=== PATIENT | male | born 1945 | race Caucasian/White ===

== ENCOUNTER 2019-08-09 14:06 | Inpatient (IN) ==
--- NOTE | 2019-08-09 14:59 | Diag Imaging Result Doc PS360 ---
CHEST-1 VIEW - 08/09/2019 INDICATION: sepsis protocol COMPARISON: 05/25/2019 FINDINGS: There is a grossly stable dominant pulmonary mass in the right upper lobe. No new masses or infiltrates otherwise. Heart size is normal. No pneumothorax or pleural effusion. IMPRESSION: No change from prior. Electronically signed by Semaj Bryan 08/09/2019 2:57 PM
[2019-08-09] MEDS ORDERED: NS 1,000 ML IV ONE ×2 (15:22→17:24)
[2019-08-09 15:53] LABS: INR 1.2; PROTIME 15.4 Seconds (11.0-16.0)
[2019-08-09 15:54] LABS: PTT 33.8 Seconds (22.3-41.8)
[2019-08-09 16:04] LABS: ESTIMATED GFR > 60
[2019-08-09 16:05] LABS: BASO# 0.06 X1000 (0.0-0.2); BASO% 0.1 % (0.0-0.8); HEMOGLOBIN 10.5 g/dL (14.0-18.0); IMM GRAN# 0.03 X1000 (0.0-0.04); IMM GRAN% 0.1 % (0.0-0.5); LYMPH# 44.52 X1000 (1.2-3.4); LYMPH% 99.2 % (20.5-51.1); MCH 29.4 PG (27-31); MCHC 32.8 g/dL (33-37); MCV 89.6 FL (81-99); MONO# 0.02 X1000 (0.11-0.59); MPV 8.8 FL (7.4-10.4); NEUT% 0.6 % (42.2-75.2); PLT 207 X1000 (130-400); RBC 3.57 XMIL (4.7-6.1); RDW 16.3 % (11.5-14.5); WBC 44.86 X1000 (4.8-10.8)
[2019-08-09 16:07] LABS: NEUT# 0.23 X1000 (1.4-6.5)
[2019-08-09 16:18] LABS: AGAP 13; ALB/GLOB RATIO 1.6; ALBUMIN 2.5 g/dL (3.5-5.0); ALKALINE PHOSPHATASE 118 U/L (32-122); BUN 20 mg/dL (8-22); CALCIUM 7.7 mg/dL (8.8-10.2); CHLORIDE 81 mmol/L (98-107); CK PROFILE 63 U/L (24-204); COSMO 250; CREATININE 0.6 mg/dL (0.7-1.2); GLUCOSE 99 mg/dL (70-104); GOT 64 U/L (10-34); GPT 41 U/L (10-44); POTASSIUM 4.1 mmol/L (3.5-5.1); SODIUM 123 mmol/L (136-145); TCO2 29 mmol/L (25-35); TOTAL BILIRUBIN 0.65 mg/dL (0.20-1.00); TOTAL PROTEIN 4.1 g/dL (6.3-8.3)
[2019-08-09 16:22] LABS: LARGE PLATELETS OCCASIONAL; LYMPHS 55 % (21-51)
[2019-08-09 16:23] LABS: ANISOCYTOSIS 1+
--- NOTE | 2019-08-09 16:43 | EKG Report ---
Test Performed on : 08/09/2019 2:23:37 PM Test Reason : ED. No order in [place] Blood Pressure : / mmHG Vent. Rate : 126 BPM Atrial Rate : 126 BPM P-R Int : 118 ms QRS Dur : 130 ms QT Int : 346 ms P-R-T Axes : 101 028 004 degrees QTc Int : 501 ms Sinus tachycardia. with premature supraventricular complexes. Right bundle branch block T wave abnormality, consider inferior ischemia Abnormal ECG When compared with ECG of 26-MAY-2019 10:02, premature supraventricular complexes. are now present Vent. rate has increased BY 52 BPM T wave inversion now evident in Anterior leads Unconfirmed Result
[2019-08-09 18:38] LABS: URINE SOURCE CATH
[2019-08-09 18:50] LABS: BILIRUBIN URINE NEGATIVE (NEGATIVE); BLOOD URINE NEGATIVE (NEGATIVE); COLOR YELLOW; GLUCOSE URINE NEGATIVE (NEGATIVE); KETONE URINE TRACE mg/dL (NEGATIVE); LEUKOCYTES URINE NEGATIVE (NEGATIVE); NITRITE URINE NEGATIVE (NEGATIVE); PH URINE 5.5; PROTEIN URINE NEGATIVE (NEGATIVE); SP GRAVITY URINE 1.018; TURBIDITY URINE CLEAR (CLEAR); UROBILINOGEN URINE 3 mg/dL (NORMAL)
[2019-08-09 18:52] LABS: UR EPITHELIAL CELLS <10 /HPF (<10); URINE BACTERIA NEGATIVE /HPF; URINE RBC <10 /HPF (<10); URINE WBC <10 /HPF (<10)
--- NOTE | 2019-08-09 19:29 | Diag Imaging Result Doc PS360 ---
CT ABD/PELVIS W/IV CONT ONLY - 08/09/2019 INDICATION: 1ST CHEMO LAST LIBRADO CAME W/ N/V/D/ABD PAIN + WBC 40 COMPARISON: 05/25/2019 FINDINGS: There are trace bilateral pleural effusions. No infiltrates in the lung bases. Heart size is normal. There is diffuse wall thickening of the colon compatible with severe, diffuse colitis. Otherwise, no bowel obstruction or inflammation. There has been increase in size of the hypoenhancing liver lesion at the lateral right lobe of the liver. This now measures about 2.3 cm. Stable severe mesenteric lymphadenopathy. Stable mild splenomegaly. There is significant body wall edema. IMPRESSION: 1. Severe diffuse colitis. 2. Enlargement of the ill-defined liver mass. 3. Trace pleural effusions. Body wall edema. This exam was performed using automated exposure control, adjustment of mA or kV according to patient size, and/or use of iterative reconstruction technique Electronically signed by Semaj Bryan 08/09/2019 7:27 PM
[2019-08-09] MEDS ORDERED: CIPRO 400 MG/D5W 400 MG/200 ML IVPB IV ONE (20:06)
[2019-08-09] MEDS ORDERED: FLAGYL 500 MG/NS 500 MG/100 ML IVPB IV ONE (20:06)
--- NOTE | 2019-08-09 20:08 | PROVIDER DOCUMENTATION ---
This chart was entered by Tonya Redding Scribe, acting as scribe for Kai Rodarte MD. HPI-General Adult - General Chief Complaint: SEPSIS ALERT - D Stated Complaint: CANCER PT CANT EAT/ V/D WEAK Time Seen by Provider: 08/09/19 14:38 Source: patient Allergies/Adverse Reactions: Patient Allergies Allergy/AdvReac Type Severity Reaction Status Date / Time atorvastatin [From Lipitor] Allergy RASH Verified 05/26/19 11:45 naproxen [From Naprosyn] Allergy RASH Verified 05/26/19 11:45 Home Medications: Home Medication List Medication Instructions Recorded Confirmed Last Taken Type Hydrocodone/Acetaminophen 7.5 mg PO DAILY 08/09/19 08/09/19 Unknown History [Hydrocodone-Acetamin 7.5-325] - History of Present Illness -Gen Adult Nature of Presenting Problems: 74 yom c/o nvd and dehydration after receiving 1st chemo tx this past . pt has hx of lung cancer w/mets to lymph nodes and leukemia. pt is in no acute distress but is [place]. Location of Pain/Injury: reports: none Pain Radiation: reports: no radiation Quality of Pain: reports: none Severity: reports: mild Onset/Duration: reports: 4 days ago Timing: reports: still present Context/Activities at Onset: reports: none Associated Symptoms: reports: diarrhea, nausea, vomiting, other (dehydration) Recently seen or treated by another doctor?: Yes (chemo [facility] ) Review of Systems - Adult - REVIEW OF SYSTEMS - ADULT Constitutional: reports: see HPI, other (dehydration). denies: chills, fever, fatique Eyes: reports: no symptoms reported Ears, Nose, Mouth & Throat: reports: no symptoms reported Cardiovascular: reports: no symptoms reported Respiratory: reports: no symptoms reported Gastrointestinal: reports: see HPI, diarrhea, nausea, vomiting. denies: abdominal pain, hematemesis, constipation Genitourinary: reports: no symptoms reported Musculoskeletal: reports: no symptoms reported Integumentary: reports: no symptoms reported Neurological: reports: no symptoms reported Psychiatric: reports: no symptoms reported Endocrine: reports: no symptoms reported Hematologic/Lymphatic: reports: no symptoms reported Allergic/Immunologic: reports: no symptoms reported All Other Systems: Reviewed and Negative Past History - Adult - PAST MEDICAL HISTORY-ADULT Review of Records: reports: Nursing Assessment Review, Medications Reviewed, Social history reviewed & non-contributory. Major Childhood Illnesses: reports: denies history Cardiovascular: reports: HTN Respiratory: reports: cancer Gastrointestinal: reports: denies history Obstetrical/Gynecological: reports: denies history Genitourinary: reports: prostate cancer Musculoskeletal: reports: denies history Neurological: reports: CVA Endocrine/Immune: reports: Leukemia Other Conditions: reports: denies history - IMMUNIZATION STATUS Childhood Immunizations: See Nurse Assessment Flu Vaccine: See Nurse Assessment - FAMILY HISTORY Family History: reviewed, not pertinent - SOCIAL HISTORY Smoking: cigarettes, greater than 1 pack/day Provider spent 3-5 mins advising pt. on dangers of tobacco.: Discussed manners to quit use, and f/u contacts for add'l counseling. Substance Use: alcohol Alcohol Use Frequency: every day Number of drinks per typical drinking period:: 11-15 drinks Physical Exam-General - PHYSICAL EXAM-ADULT Initial Vital Signs Reviewed: Yes - CONSTITUTIONAL General Appearance: appears well, alert, no apparent distress, thin. negative: lethargic, slow to respond, obtunded - EYES Eyes: PERRL/EOMI, pink conjunctivae - HEAD, EARS, NOSE, MOUTH & THROAT HENMT: normocephalic/atraumatic, normal ENT inspection, hearing deficit ([place]). negative: moist mucous membranes (dry mucous membranes), angioedema, pharyngeal erythema, tonsillar exudate - NECK Neck: non-tender, full range of motion, supple, normal inspection - RESPIRATORY Respiratory: chest non-tender, lungs clear, normal breath sounds, no pleuratic chest pain, no respiratory distress, no accessory muscle use. negative: respiratory distress, decreased breath sounds, wheezing - CARDIOVASCULAR Cardiovascular: normal peripheral pulses, regular rate, rhythm, no edema, no gallop, no JVD, no murmur. negative: tachycardia, extra beats, irregularly irregular, PMI displaced laterally - GASTROINTESTINAL (ABDOMEN) Abdominal Exam: normal bowel sounds, non tender, soft, no organomegaly, no pulsatile mass. 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, grossly normal, no motor/sensory deficits - PSYCHIATRIC Psych/Mental Status: normal mood/affect, normal thought content, normal thought process, oriented x 3 Progress - PLAN OF CARE/RESULTS Progress/Plan/Lab Results: Vital Signs - 8 hr 08/09/19 14:28 08/09/19 14:42 08/09/19 14:43 Temperature 97.7 F Pulse Rate 123 H 127 H Respiratory Rate 24 23 Blood Pressure 137/90 96/58 O2 Sat by Pulse Oximetry 97 97 98 08/09/19 14:45 08/09/19 15:00 08/09/19 15:15 Temperature Pulse Rate 126 H 121 H 128 H Respiratory Rate 16 27 H 18 Blood Pressure O2 Sat by Pulse Oximetry 97 98 96 08/09/19 15:30 08/09/19 15:45 08/09/19 15:53 Temperature Pulse Rate 120 H 126 H 118 H Respiratory Rate 16 25 H 21 Blood Pressure 96/56 O2 Sat by Pulse Oximetry 97 97 96 08/09/19 16:00 08/09/19 16:01 08/09/19 16:15 Temperature Pulse Rate 122 H 119 H 124 H Respiratory Rate 20 24 18 Blood Pressure 99/64 O2 Sat by Pulse Oximetry 95 96 97 08/09/19 16:30 08/09/19 16:31 08/09/19 17:01 Temperature Pulse Rate 117 H 120 H 122 H Respiratory Rate 19 19 19 Blood Pressure 93/55 119/64 O2 Sat by Pulse Oximetry 97 96 96 08/09/19 17:31 08/09/19 18:01 08/09/19 18:31 Temperature Pulse Rate 118 H 122 H 124 H Respiratory Rate 17 19 20 Blood Pressure 116/59 128/55 94/64 O2 Sat by Pulse Oximetry 95 95 95 08/09/19 15:29 Influenza Screen - Final Nasopharyngeal Laboratory Results - last 24 hr 08/09/19 08/09/19 08/09/19 15:13 15:13 15:13 WBC 44.86 H RBC 3.57 L Hgb 10.5 L Hct 32.0 L MCV 89.6 MCH 29.4 MCHC 32.8 L RDW Std Deviation 16.3 H Plt Count 207 MPV 8.8 Immature Gran % (Auto) 0.1 Neut % (Auto) 0.6 L Lymph % (Auto) 99.2 H [place] % (Auto) 0.0 L Eos % (Auto) 0.0 Baso % (Auto) 0.1 Immature Gran # (Auto) 0.03 Neut # (Auto) 0.23 L* Lymph # (Auto) 44.52 H [place] # (Auto) 0.02 L Eos # (Auto) 0.00 Baso # (Auto) 0.06 Segmented Neutrophils Not Reportable Lymphocytes 55 H Atypical Lymphocytes 33.0 Large Platelets OCCASIONAL Anisocytosis 1+ Unidentified Cells 12.0 PT 15.4 INR 1.20 PTT (Actin FS) 33.8 Sodium 123 L Potassium 4.1 Chloride 81 L Carbon Dioxide 29 Anion Gap 13 BUN 20 Creatinine 0.6 L Estimated GFR/1.73 m2 > 60 BUN/Creatinine Ratio 33 Glucose 99 Calculated Osmolality 250 Calcium 7.7 L Total Bilirubin 0.65 AST 64 H ALT 41 Alkaline Phosphatase 118 Creatine Kinase 63 Troponin T Total Protein 4.1 L Albumin 2.5 L Globulin 1.6 Albumin/Globulin Ratio 1.6 Plasma Lactate Urine Source Urine Color Urine Turbidity Urine pH Ur Specific [place] Urine Protein Ur Glucose (Stick) Ur Ketones (Stick) Urine Blood Urine Nitrite Urine Bilirubin Urobilinogen Dipstick Urine Leukocytes Urine WBC (Auto) Urine RBC (Auto) U Epithel Cells (Auto) Urine Bacteria (Auto) 08/09/19 08/09/19 08/09/19 15:13 15:13 17:45 WBC RBC Hgb Hct MCV MCH MCHC RDW Std Deviation Plt Count MPV Immature Gran % (Auto) Neut % (Auto) Lymph % (Auto) [place] % (Auto) Eos % (Auto) Baso % (Auto) Immature Gran # (Auto) Neut # (Auto) Lymph # (Auto) [place] # (Auto) Eos # (Auto) Baso # (Auto) Segmented Neutrophils Lymphocytes Atypical Lymphocytes Large Platelets Anisocytosis Unidentified Cells PT INR PTT (Actin FS) Sodium Potassium Chloride Carbon Dioxide Anion Gap BUN Creatinine Estimated GFR/1.73 m2 BUN/Creatinine Ratio Glucose Calculated Osmolality Calcium Total Bilirubin AST ALT Alkaline Phosphatase Creatine Kinase Troponin T < 0.010 Total Protein Albumin Globulin Albumin/Globulin Ratio Plasma Lactate 1.7 0.7 Urine Source Urine Color Urine Turbidity Urine pH Ur Specific [place] Urine Protein Ur Glucose (Stick) Ur Ketones (Stick) Urine Blood Urine Nitrite Urine Bilirubin Urobilinogen Dipstick Urine Leukocytes Urine WBC (Auto) Urine RBC (Auto) U Epithel Cells (Auto) Urine Bacteria (Auto) 08/09/19 18:33 WBC RBC Hgb Hct MCV MCH MCHC RDW Std Deviation Plt Count MPV Immature Gran % (Auto) Neut % (Auto) Lymph % (Auto) [place] % (Auto) Eos % (Auto) Baso % (Auto) Immature Gran # (Auto) Neut # (Auto) Lymph # (Auto) [place] # (Auto) Eos # (Auto) Baso # (Auto) Segmented Neutrophils Lymphocytes Atypical Lymphocytes Large Platelets Anisocytosis Unidentified Cells PT INR PTT (Actin FS) Sodium Potassium Chloride Carbon Dioxide Anion Gap BUN Creatinine Estimated GFR/1.73 m2 BUN/Creatinine Ratio Glucose Calculated Osmolality Calcium Total Bilirubin AST ALT Alkaline Phosphatase Creatine Kinase Troponin T Total Protein Albumin Globulin Albumin/Globulin Ratio Plasma Lactate Urine Source CATH Urine Color YELLOW Urine Turbidity CLEAR Urine pH 5.5 Ur Specific [place] 1.018 Urine Protein NEGATIVE Ur Glucose (Stick) NEGATIVE Ur Ketones (Stick) TRACE A Urine Blood NEGATIVE Urine Nitrite NEGATIVE Urine Bilirubin NEGATIVE Urobilinogen Dipstick 3 A Urine Leukocytes NEGATIVE Urine WBC (Auto) <10 Urine RBC (Auto) <10 U Epithel Cells (Auto) <10 Urine Bacteria (Auto) NEGATIVE Orders Category Date Time Status Cardiac Monitoring DIRECTED Care 08/09/19 14:32 Active IV Insertion ORDERED Care 08/09/19 14:32 Completed Notify MD of + Sepsis Screen NOW Care 08/09/19 14:32 Active Notify Physician As Ordered Care 08/09/19 14:32 Active CHEST-1 VIEW [RAD] Stat Exams 08/09/19 14:[address] ABD/PELVIS W/IV CONT ONLY [CT] Stat Exams 08/09/19 17:25 Ordered BLOOD CULTURE [BLDCUL] Stat Lab 08/09/19 15:20 Results CBC WITH DIFF [HEME] Stat Lab 08/09/19 15:13 Completed CK PROFILE [SP CHEM] Stat Lab 08/09/19 15:13 Completed COMPREHENSIVE METABOLIC PANEL [CHEM] Stat Lab 08/09/19 15:13 Completed INFLUENZA SCREEN A/B Stat Lab 08/09/19 15:29 Completed LACTATE, PLASMA [CHEM] Lab 08/09/19 17:45 Completed LACTATE, PLASMA [CHEM] Lab 08/09/19 20:45 Uncollected LACTATE, PLASMA [CHEM] Q3H Lab 08/09/19 15:13 Completed PROTIME WITH INR [COAG] Stat Lab 08/09/19 15:13 Completed PTT [COAG] Stat Lab 08/09/19 15:13 Completed TROPONIN T Stat Lab 08/09/19 15:13 Completed URINALYSIS W/POSS RFLX CULT [URINALYSIS] Stat Lab 08/09/19 18:33 Completed 0.9% Sodium Chloride Inj [Ns] 1,000 ml Med 08/09/19 15:22 Discontinued IV 999 mls/hr 0.9% Sodium Chloride Inj [Ns] 1,000 ml Med 08/09/19 17:24 Discontinued IV 999 mls/hr Oxygen Device Stat Oth 08/09/19 14:32 Completed EKG [EKG] Stat Ther 08/09/19 14:23 Draft Result Diagrams: 08/09/19 15:13 08/09/19 15:13 - REASSESSMENT Reassessment #1 Time Reassessed: 20:07 Status: other (SPOKE TO HOSPITALIST; WILL ADMIT.) - XRAY 1 XRAY Study: Chest ([facility] - [address] [place] [address], [address], [place] [address] [facility] - [address] [place] [address] Department of Imaging Patient: JACQUELYN WEIADM Date: 08/09/19MR#: [id number] : 7ADM Status: PRE ERAcct#: [id number] Age/Sex: 74/MRoom/Bed: Loc: ED Ordering Physician: Tho De Paz MD Family Physician: Xiang Cortés MD Reason for Procedure: sepsis protocol Signed CHEST-1 VIEW - 08/09/2019 INDICATION: sepsis protocol COMPARISON: 05/25/2019 FINDINGS: There is a grossly stable dominant pulmonary mass in the right upper lobe. No new masses or infiltrates otherwise. Heart size is normal. No pneumothorax or pleural effusion. IMPRESSION: No change from prior. Electronically signed by Semaj Bryan 08/09/2019 2:57 PM 08/09/197 Interpreting Physician: Semaj Bryan MD Dictated Date/Time: 08/09/19 1456 cc: Tho De Paz MD; Xiang Cortés MD) - CT/MRI 1 CT Study: Abdomen ([facility] - [address], [address], [place] [address] [facility] - [address] [place] [address] Department of Imaging Patient: JACQUELYN WEI Date: 08/09/19MR#: [id number] : 7ADM [id number] Age/Sex: 74/MRoom/Bed: Loc: ED Ordering Physician: Kai Rodarte MD Family Physician: Xiang Cortés MD Reason for Procedure: 1ST CHEMO LAST LIBRADO CAME W/ N/V/D/ABD PAIN + WBC [address] ABD/PELVIS W/IV CONT ONLY - 08/09/2019 INDICATION: 1ST CHEMO LAST LIBRADO CAME W/ N/V/D/ABD PAIN + WBC 40 COMPARISON: 05/25/2019 FINDINGS: There are trace bilateral pleural effusions. No infiltrates in the lung bases. Heart size is normal. There is diffuse wall thickening of the colon compatible with severe, diffuse colitis. Otherwise, no bowel obstruction or inflammation. There has been increase in size of the hypoenhancing liver lesion at the lateral right lobe of the liver. This now measures about 2.3 cm. Stable severe mesenteric lymphadenopathy. Stable mild splenomegaly. There is significant body wall edema. IMPRESSION: 1. Severe diffuse colitis. 2. Enlargement of the ill-defined liver mass. 3. Trace pleural effusions. Body wall edema. This exam was performed using automated exposure control, adjustment of mA or kV according to patient size, and/or use of iterative reconstruction technique Electronically signed by Semaj Bryan 08/09/2019 7:27 PM 08/09/191926 Interpreting Physician: Semaj Bryan MD Dictated Date/Time: 08/09/191920 cc: Kai Rodarte MD; Xiang Cortés MD) Departure - Departure Date of Disposition Decision: 08/09/19 Time of Disposition Decision: 20:06 DIAGNOSIS: Colitis Disposition: ADMITTED INPATIENT 09 Certified Medical Emergency: Emergent Condition: Serious Referrals and Follow-Ups: Xiang Cortés MD [Primary Care Provider] - - Critical Care Note This patient required my direct & personal management of CC.: No Attestation - Physician/ EMILY Attestation Patient care was provided by Advanced Practice Provider:: No The physician spent face to face time with patient:: Yes Advanced Practice Provider documentation review:: Supervising physician onsite and consulted in the evaluation and care of this patient. The physician did have a face to face encounter with the patient. This chart was documented by the indicated scribe, (Tonya Redding Scribe) and accurately reflects the services I performed and decisions made by me, Kai Rodarte MD, as attested by the provider's signature.
[2019-08-09] MEDS ORDERED: NS 1,000 ML IV SCH (21:16)
[2019-08-09] MEDS ORDERED: ZOFRAN IV PRN (21:16)
[2019-08-09] MEDS ORDERED: MORPHINE IV PRN (21:16)
[2019-08-09] MEDS ORDERED: TYLENOL PO PRN (21:16)
--- NOTE | 2019-08-09 21:38 | HISTORY AND PHYSICAL ---
CHIEF COMPLAINT: Nausea, vomiting, diarrhea and weakness. HISTORY OF PRESENT ILLNESS: This is a 74-year-old male who has a history of chronic lymphocytic leukemia, lung cancer with metastasis to the lymph nodes and also looks like he has a lesion in his liver. He received his first chemotherapy treatment this last with Dr. Cortés. He has had nausea, vomiting and diarrhea and felt dehydrated, so he came into the Emergency Room. CT scan of the abdomen showed severe colitis as well as enlargement of the liver lesion. He was started on fluids in the Emergency Room. He will be admitted for further evaluation and treatment. PAST MEDICAL HISTORY: Prostate cancer with prostatectomy, leukemia in 2012 and had a few chemotherapy treatments but stopped chemo himself, GERD with hiatal hernia, small bowel obstruction with history of bowel resection, COPD, history of TB, chronic lower back pain with sciatic nerve pain down the left leg. PREVIOUS SURGICAL HISTORY: Umbilical hernia repair, prostatectomy, small and large bowel resection, full teeth extraction and does not wear dentures. SOCIAL HISTORY: He smokes a half a pack to a pack per day. Has smoked since the age of 8. Denies alcohol over the last 5 to 6 years. No illicit drugs. Lives at home with his . 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 FAMILY HISTORY: Mother had Alzheimer's and diabetes. ALLERGIES: Lipitor and naproxen. HOME MEDICATIONS: [place] 7.5 mg daily. REVIEW OF SYSTEMS: A 14-point review of systems was conducted with the patient. He denied fever or chills. He stated that he had already given this information. The rest of the information was on Dr. Cortés's computer and he did not feel like talking anymore. PHYSICAL EXAMINATION: VITAL SIGNS: Temperature 97.7 degrees, pulse 124, respirations 20, blood pressure 128/55, oxygen saturation 98% on room air. GENERAL: A chronically ill-appearing, 74-year-old male, lying on the ER stretcher. He is alert and oriented x 3 and states he does not feel like completing the rest of the interview. HEENT: Head is atraumatic, normocephalic. Pupils equal, round and reactive to light. Extraocular eye movements intact. Sclerae are anicteric. Conjunctivae pale. Oral mucosa is dry. NECK: Supple. No JVD. No thyromegaly. Trachea is midline. No cervical lymphadenopathy. CARDIAC: S1, S2 appreciated. No murmurs, rubs or gallops. He is tachycardic. LUNGS: Expiratory wheezing noted. No rhonchi. No rales. Decreased bilaterally. Symmetrical rise and fall of respirations. ABDOMEN: Soft. Diffusely tender. Bowel sounds present in all 4 quadrants, normoactive. No pulsatile mass, no organomegaly. EXTREMITIES: There is 3+ pitting edema in bilateral lower extremities; 1+ pedal pulses. GENITOURINARY: No bladder distention. Patient voids. Otherwise deferred. NEUROLOGICAL: Alert and oriented x 3. No focal motor deficits. Otherwise nonfocal examination. DIAGNOSTIC DATA: Chest x-ray - no change from prior. Stable, dormant pulmonary mass in the right upper lob. No infiltrates, no effusions. CT of the abdomen and pelvis - severe diffuse colitis, enlargement of the ill-defined liver mass, is now 2.3 cm. Trace pleural effusions and body wall edema. Laboratory data: WBC 44.86, hemoglobin 10.5, hematocrit 32, platelet count 207. Sodium 123, potassium 4.1, chloride 81, carbon dioxide 29, BUN 20, creatinine 0.6, glucose 99. Urinalysis unremarkable. ASSESSMENT: 1. Chemotherapy-induced colitis. 2. Hyponatremia. 3. Chronic lymphocytic leukemia. 4. Lymphoma with metastasis. 5. Severe volume depletion. PLAN: 1. We will rehydrate patient. Continue normal saline. 2. Recheck laboratory data tomorrow morning. 3. We will start the patient on Cipro and Flagyl. Blood cultures are pending. 4. We will give morphine as needed for pain. 5. Start the patient on DuoNebs q. [address] Cortés to follow up with the patient. 7. Further recommendations based on clinical course. Dictated by RYAN Adames for Reilly Bryan MD cc: RYAN Adames MD Sammy Becdach, MD Pt seen and examined by me and was found to in sepsis secondary to colitis likely to side of possible checkpoint inhibitor immunotherapy. Agree with choice of abx. He clinically has low pulse volume and diffusely tender abdomen with mild rebound. Will increase IVF resuscitation. MTDD
[2019-08-09] MEDS: DUONEB (A & A) INH SCH (22:41)
[2019-08-10] MEDS: DUONEB (A & A) INH SCH ×4 (03:36→22:28)
[2019-08-10] MEDS: FLAGYL 500 MG/NS 500 MG/100 ML IVPB IV SCH ×4 (04:11→23:37)
[2019-08-10 06:55] LABS: BASO# 0.02 X1000 (0.0-0.2); BASO% 0.1 % (0.0-0.8); EOS# 0.01 X1000 (0.0-0.7); HEMATOCRIT 27.6 % (42.0-52.0); HEMOGLOBIN 9.1 g/dL (14.0-18.0); LYMPH# 30.92 X1000 (1.2-3.4); LYMPH% 98.3 % (20.5-51.1); MCH 29.7 PG (27-31); MCV 90.2 FL (81-99); MONO# 0.36 X1000 (0.11-0.59); MONO% 1.1 % (1.7-9.3); MPV 9.3 FL (7.4-10.4); NEUT# 0.16 X1000 (1.4-6.5); NEUT% 0.5 % (42.2-75.2); PLT 164 X1000 (130-400); RBC 3.06 XMIL (4.7-6.1); RDW 16.5 % (11.5-14.5); WBC 31.47 X1000 (4.8-10.8)
[2019-08-10 07:29] LABS: AGAP 10; BUN 15 mg/dL (8-22); CHLORIDE 84 mmol/L (98-107); COSMO 245; CREATININE 0.5 mg/dL (0.7-1.2); ESTIMATED GFR > 60; GLUCOSE 93 mg/dL (70-104); POTASSIUM 3.4 mmol/L (3.5-5.1); SODIUM 121 mmol/L (136-145); TCO2 27 mmol/L (25-35)
[2019-08-10 07:30] LABS: MAGNESIUM 1.8 mg/dL (1.5-2.7)
[2019-08-10] MEDS ORDERED: CIPRO 400 MG/D5W 400 MG/200 ML IVPB IV SCH (08:00)
[2019-08-10 08:01] LABS: LYMPHS 99 % (21-51); SEGS 1 % (42-75)
[2019-08-10] MEDS ORDERED: CALCIUM GLUCONATE 4.65 MEQ in NS 50 ML IV ONE ×2 (09:15→19:30)
[2019-08-10] MEDS ORDERED: ALBUMIN 25% IV ONE (10:07)
[2019-08-10] MEDS: POTASSIUM CHLORIDE 20 MEQ in NS 1,000 ML IV SCH ×2 (11:14→23:37)
[2019-08-10] MEDS: SODIUM CHLORIDE 0.9% INJ SCH ×2 (11:22→23:36)
[2019-08-10] MEDS: PROTONIX IV SCH ×2 (11:22→23:36)
[2019-08-10] MEDS: NORCO-7.5 PO PRN ×2 (11:54→17:38)
[2019-08-10] MEDS: ZYVOX 600 MG/D5W 600 MG/300 ML IVPB IV SCH ×2 (11:55→23:37)
--- NOTE | 2019-08-10 12:21 | PROGRESS NOTE ---
DATE: 08/10/2019 SUBJECTIVE: This patient is lying in bed. He is complaining of abdominal pain and he is requesting his pain medication by mouth, which I will add it. He does not like too much morphine. He has a past medical history of CLL and history of prostate cancer. I am not sure if he has a history of lung cancer or metastasis to the lungs as well. He has a history of bilateral lung masses. We had a CT scan that showed bilateral lung masses with the largest cavitary mass in the right upper lobe measuring slightly larger than the previous study. Also, he had a few hepatic nodules that are suspicious for metastatic foci. The CT scan was done on 07/28/2002. I have requested an evaluation by Hematology/Oncology Department. At this time, the patient presented with diarrhea. The CT scan of the abdomen showed severe diffuse colitis, which could be related to chemotherapy. Also, this new abdomen CT scan showed an enlargement of the ill-defined liver mass, trace pleural effusion, and body wall edema. Clinically, he seems to be dehydrated. I will give him a couple doses of albumin. I will continue with gentle IV fluids since his sodium chloride and potassium are low. I will replace the potassium through the IV solution. He is also hypocalcemic, and I will replace it. OBJECTIVE: Vital Signs: Temperature 98.8 degrees, pulse 119, respiratory rate 20, blood pressure 129/61, and oxygen saturation 91% on room air. HEENT: Head normocephalic. No trauma PERRLA. Neck: Supple. No JVD. Central trachea. Chest: He has some expiratory wheezing, and some crepitus scattered. Abdomen: Soft. Generalized tenderness to palpation. Positive bowel sounds. I cannot evaluate organomegaly due to his tenderness. Extremities: Two to 3+ lower extremity edema. No clubbing. No cyanosis. Neurological: The patient is alert and oriented x3. No focal deficits but generalized weakness. General: This patient seems to be chronically ill 74-year-old male. LABORATORY: WBC 31.4, hemoglobin 9.1, hematocrit 27.6, and platelets 164,000. Neutrophil count 0.16. Sodium 121, potassium 3.4, chloride 84, bicarbonate 27, BUN 15, creatinine 0.5. Glucose 93, calcium 7, magnesium 1.8, and TSH 0.14. ASSESSMENT AND PLAN: 1. Sepsis. This patient meets criteria for sepsis with elevated white blood cell count. He is also tachycardic, and he has been having episodes of tachypnea. We do have colitis which could be infectious versus chemo related. At this point, we are giving him antibiotics and we are going to contact Gastroenterology Department to evaluate this patient. 2. Electrolyte imbalance with hyponatremia, hypochloremia, hypokalemia and hypocalcemia. I will try to replace all of them. I will give him gentle IV fluids. 3. CLL with metastasis. This patient has been seen and followed by Dr. Cortés which we have consulted. 4. Severe volume depletion. Like I mentioned before, this patient seems to be still dehydrated. He is getting some IV fluids, and I will add albumin to his medications. History of stroke. Aware. No changes. 5. History of cavitary lung lesions. Apparently QuantiFERON gold were done before, and they were negative. 6. History of prostate cancer. Aware. 7. History of chronic obstructive pulmonary disease. He was having some mild wheezing but he seems to be better now. 8. Deep vein thrombosis prophylaxis. At this moment, I will likely continue with only SCD's. 9. Gastrointestinal prophylaxis. I already had PPIs to his medications. 10. Chronic pain due to his cancer. He has requested to be placed back on his home medications, which is Lortab 7.5. He takes that as needed and most of the time twice a day. cc: Mu Reza MD
[2019-08-10] MEDS: VANCOCIN PO SCH ×2 (14:48→20:22)
--- NOTE | 2019-08-10 16:30 | Diag Imaging Result Doc PS360 ---
ABDOMEN FLAT/UPRIGHT - 08/10/2019 INDICATION: pain COMPARISON: CT from 08/09/2019 FINDINGS: There is a nonobstructive bowel gas pattern. No free air or abdominal calcifications. IMPRESSION: No acute disease. Electronically signed by Semaj Bryan 08/10/2019 4:28 PM
--- NOTE | 2019-08-10 18:26 | GASTROENTEROLOGY CONSULTATION ---
DATE: 08/10/2019 REASON FOR CONSULT: Diarrhea, Nausea and Vomiting. HISTORY OF PRESENT ILLNESS: Mr. Matthews is a 74-year-old, male, with a history of chronic lymphocytic leukemia, lung cancer with metastasis to the lymph nodes and has lesions in his liver. The patient mentioned that 5 years ago, he stopped his chemotherapy in 2014, and then when he was in the hospital in April, they restarted it. The last chemotherapy he received was on . He gets it every 3 weeks. The patient is seeing Dr. Cortés for his leukemia and lung cancer. The patient complained that last night, he came into the hospital with complaints of nausea, vomiting, diarrhea, and dehydration and also mentioned that it is going on for the last 3 weeks onwards. He is not able to eat anything or keep any food, and he has been having constant diarrhea. A chest x-ray on 08/09/2019, showed no changes from prior. Abdomen and pelvis CT showed severe diffuse colitis and enlargement of the ill-defined liver mass, trace pleural effusions, body wall edema. C-diff toxin and antigen were positive. PAST MEDICAL HISTORY: Prostate cancer with prostatectomy, leukemia, GERD, hiatal hernia, small bowel obstruction with a history of bowel resection, COPD, history of TB, chronic back pain, CVA, left-sided weakness, and sciatic nerve pain radiating to the leg. PAST SURGICAL HISTORY: Umbilical hernia repair, prostatectomy, small and large bowel resection, teeth extractions, and gallbladder surgery. FAMILY HISTORY: His mother had Alzheimer's and diabetes. SOCIAL HISTORY: The patient is , has 5 kids. He smokes half a pack to 1 pack of cigarettes per day. He has denied any alcohol or illicit drugs. ALLERGIES: Lipitor and naproxen. HOME MEDICATIONS: Crestor 20 mg at bedtime, dronabinol 5 mg twice a day, and hydrocodone/acetaminophen 7.5/325 mg 1 tablet daily. REVIEW OF SYSTEMS: As per HPI. Otherwise, 12-point review of systems is negative. PHYSICAL EXAMINATION: Vital Signs: Temperature 99.0, pulse 118, respirations 20, blood pressure 113/59, oxygen saturation 99% on room air. The patient's weight is 153 pounds. BMI is 23.3 kg/m2. General: Alert, oriented x3. Answering questions appropriately and in no acute distress. HEENT: Pale conjunctivae. No icterus. PERRL. Neck: Supple. Lungs: Diminished breath sounds heard in the anterior novak. Cardiovascular: Tachycardic. Abdomen: Soft, tender in all 4 quadrants, distended. Active bowel sounds heard in all 4 quadrants. Extremities: Pitting edema 3+ bilaterally. No clubbing, no cyanosis. Pedal pulses 1+ noted bilaterally. Neurological: Alert, oriented x3. Nonfocal. Cranial nerves 2-12 grossly intact. LABORATORY AND DIAGNOSTIC DATA: WBC 31.47, RBC 3.06, hemoglobin 9.1, hematocrit 27.6, platelet count 164,000. PT 15.4, INR 1.20. Sodium 121, potassium 3.4, chloride 84, carbon dioxide 27, anion gap 10, BUN 15, creatinine 0.5, calcium 7.0. Urinalysis showed trace of ketones. His stool study showed positive C difficile toxin and antigen, and his stool for WBCs, none was seen. Abdomen and pelvis CT showed severe diffuse colitis, enlargement of the ill- defined liver mass, trace pleural effusion, body wall edema. Chest x-ray showed no changes from the prior. IMPRESSION AND PLAN: Diarrhea Nausea and vomiting Abdominal pain History of chronic lymphocytic leukemia History of lung cancer metastasized to the lymph nodes Electrolyte imbalance Dehydration Tobacco abuse PLAN: Mr. Matthews is a 74 year old male with the history of lukemia and lung cancer, GI was consulted for diarrhea, nausea and vomiting. Patient's The patient is on GI prophylaxis 40 mg IV twice a day. He is receiving potassium chloride for his potassium. His potassium today was 3.4. The patient is on antiemetics, Zofran, for his nausea and vomiting. He is receiving IV Flagyl, IV Zyvox, and PO vancomycin antibiotics for his C-diff. If the patient's diarrhea, nausea and vomiting worsens, we will plan to do an EGD and colonoscopy. This plan was discussed with Dr. Gold. Thank you for your consult. Please call us for any further questions or concerns. Dictated by RYAN Peres for Kaleb Gold MD Physician Attestation I have seen and examined the patient. I have discussed and reviewed the note by Kelly DAVIS and agree with findings and plan as documented. In brief, Mr. Matthews is a 74 year old man with history of CLL and metastatic lung cancer who presents with acute diarrhea (3 weeks) and volume depletion secondary to CDI colitis. He as recently started on Keytruda and Alimta last . We have started oral vancomycin. Hyponatremia and marked leukocytosis noted (unknown baseline WBC with CLL). However, he is neutropenic. Agree with volume resuscitation and PPI therapy. Advance diet as tolerated. Will follow with you. Please trend BMs. Will follow with you. MTDD
[2019-08-11] MEDS: NORCO-7.5 PO PRN ×4 (00:12→18:25)
[2019-08-11] MEDS: VANCOCIN PO SCH ×4 (02:05→22:01)
[2019-08-11] MEDS: DUONEB (A & A) INH SCH ×4 (03:45→22:41)
[2019-08-11] MEDS: FLAGYL 500 MG/NS 500 MG/100 ML IVPB IV SCH ×2 (05:54→12:08)
[2019-08-11 07:21] LABS: BASO# 0.02 X1000 (0.0-0.2); BASO% 0.1 % (0.0-0.8); EOS# 0.01 X1000 (0.0-0.7); HEMATOCRIT 25.7 % (42.0-52.0); HEMOGLOBIN 8.4 g/dL (14.0-18.0); IMM GRAN# 0.02 X1000 (0.0-0.04); IMM GRAN% 0.1 % (0.0-0.5); LYMPH# 23.35 X1000 (1.2-3.4); LYMPH% 97.7 % (20.5-51.1); MCH 29.5 PG (27-31); MCHC 32.7 g/dL (33-37); MCV 90.2 FL (81-99); MONO# 0.22 X1000 (0.11-0.59); MONO% 0.9 % (1.7-9.3); MPV 9.2 FL (7.4-10.4); NEUT% 1.2 % (42.2-75.2); PLT 105 X1000 (130-400); RBC 2.85 XMIL (4.7-6.1); RDW 16.5 % (11.5-14.5)
[2019-08-11 07:25] LABS: NEUT# 0.28 X1000 (1.4-6.5)
[2019-08-11 07:26] LABS: ESTIMATED GFR > 60
[2019-08-11 07:38] LABS: AGAP 10; ALB/GLOB RATIO 1.4; ALBUMIN 2.3 g/dL (3.5-5.0); ALKALINE PHOSPHATASE 93 U/L (32-122); BUN 12 mg/dL (8-22); CHLORIDE 84 mmol/L (98-107); COSMO 242; CREATININE 0.5 mg/dL (0.7-1.2); GLUCOSE 99 mg/dL (70-104); GOT 51 U/L (10-34); GPT 29 U/L (10-44); POTASSIUM 3.8 mmol/L (3.5-5.1); TCO2 26 mmol/L (25-35); TOTAL BILIRUBIN 0.93 mg/dL (0.20-1.00)
[2019-08-11 07:47] LABS: CALCIUM 7.2 mg/dL (8.8-10.2)
[2019-08-11 07:55] LABS: SODIUM 120 mmol/L (136-145)
[2019-08-11] MEDS ORDERED: ALBUMIN 25% IV ONE (10:04)
--- NOTE | 2019-08-11 10:33 | PROGRESS NOTE ---
DATE: 08/11/2019 SUBJECTIVE: Patient is lying in bed. He is still complaining of abdominal pain but apparently compared with yesterday is a little bit better. He does have C. difficile colitis. He has been placed on vancomycin p.o. and also he is getting IV Flagyl. On top of that, he is getting Zyvox due to a gram-positive cocci blood culture in blood, which I will discontinue because it is related to a coagulase-negative Staphylococcus aureus 1/2, which is likely a contaminant. His sodium level is low and has been low chronically for at least these couple of months. Since he is trending down, I have requested an evaluation by nephrology department for this patient. OBJECTIVE: Vital Signs: Temperature 97.3 degrees, pulse 116, respiratory rate 18, blood pressure 139/56, oxygen saturation 90 on room air. HEENT: Head normocephalic, no trauma. PERRLA. Neck: Supple. No JVD. No masses. Central trachea. Chest: He has mild end expiratory wheezing and some crepitus scattered. Abdomen: Soft, generalized tenderness to palpation. Positive bowel sounds. Slightly distended. I cannot evaluate organomegaly due to his tenderness. Extremities: He has 2 to 3+ lower extremity edema. No clubbing. No cyanosis. Neurological: The patient is alert and oriented x3. No focal deficits. He is not able to eat too much due to his current condition. For now I will continue with the same management. General: This patient seems to be a chronically ill 74-year-old male lying in bed. He is not complaining of too much pain at this moment. LABORATORY: WBC 23.9, hemoglobin 8.4, hematocrit 25.7, platelets 105,000. Sodium 120, potassium 3.8, chloride 84, bicarbonate 26, BUN 12, creatinine 0.5, glucose 99, calcium 7.2, albumin 2.3. ASSESSMENT AND PLAN: 1. Sepsis. This patient meets criteria for sepsis with elevated white blood cell count, tachycardic, episodes of tachypnea and Clostridium difficile colitis. At this point, we will continue with antibiotics. Gastroenterology department on board. 2. Electrolyte imbalance with hyponatremia, hypochloremia. Continue with IV fluids. I have requested an evaluation by nephrology department. 3. Hypokalemia, resolved. 4. Hypocalcemia, better. 5. Chronic lymphocytic leukemia (CLL) with metastasis. Followed by Dr. Cortés, who has been consulted. 6. Severe volume depletion. He seems to be more hydrated. Continue with gentle IV fluids. Albumin still low even though he received a couple bottles of albumin yesterday. His blood pressure improved after that, though. I will give him 25 g today x1 and monitor. 7. History of cavitary lung lesions. Apparently QuantiFERON gold was done before and they were negative. 8. History of prostate cancer, aware. 9. History of COPD. He is having some mild wheezing but he seems to be better now. 10. Deep vein thrombosis prophylaxis. At this moment, I will continue with sequential compression devices. 11. Gastrointestinal prophylaxis. I already added PPIs to his medications. 12. Chronic pain due to his cancer. The patient has been requested to take his home medications including Lortab 7.5 mg. Most of the time he takes this medication twice a day as needed. cc: Mu Reza MD
[2019-08-11] MEDS: SODIUM CHLORIDE 0.9% INJ SCH (10:52)
[2019-08-11] MEDS: PROTONIX IV SCH ×2 (10:52→22:01)
--- NOTE | 2019-08-11 11:37 | GASTROENTEROLOGY PROGRESS NOTE ---
DATE: 08/11/2019 SUBJECTIVE: Mr. Matthews is a 74-year-old male who was resting in bed. The patient was complaining that he is sleepy and he did not want to answer any questions, but he has denied any nausea and vomiting. The patient did have a bowel movement this morning. He is currently on clear liquids, and he is tolerating it fairly well. OBJECTIVE: Vital Signs: Temperature 97.3 degrees, pulse 116, respirations 18, blood pressure 139/56, oxygen saturation 90% on room air. The patient's weight is 153 pounds, BMI is 23.3 kg/m2. General: He is alert, oriented x3, and in no acute distress. HEENT: Pale conjunctivae. No icterus. PERRL. Neck: Supple. Lungs: Diminished breath sounds heard in the anterior novak. Cardiovascular: The patient is tachycardic. Abdomen: Soft, mildly distended and tender in all 4 quadrants. Active bowel sounds heard in all 4 quadrants. Extremities: Pitting edema 2+ bilaterally. No clubbing, no cyanosis. Pedal pulses 1+ present bilaterally. Neurological: Alert and oriented x3. IMAGING AND LABORATORY DATA: WBC is 23.90, RBC 2.85, hemoglobin 8.4, hematocrit 25.7, platelet count 105,000. Sodium 120, potassium 3.8, chloride 84, carbon dioxide 26, anion gap 10, BUN 12, creatinine is 0.5, glucose 99, calcium 7.2. Total bilirubin 0.93, AST 51, ALT 29, alkaline phosphate 93, albumin is 2.3. Abdominal x-ray on 08/10/2019 showed no acute disease. His Clostridium difficile toxin and antigen were positive. Stool for WBC: None was seen. IMPRESSION AND PLAN: Diarrhea Nausea and Vomiting Abdominal Pain History of chronic lymphocytic leukemia History of Lung cancer metastasized to the lymph nodes Electrolyte imbalance Dehydration Tobacco abuse PLAN: Mr. Matthews is a 74-year-old male with a history of leukemia and lung cancer. Gastroenterology is following him for his diarrhea, nausea, and vomiting. The patient is on GI prophylaxis with 40 mg intravenously twice a day, and for his Clostridium difficile, he is receiving vancomycin 125 mg by mouth every 6 hours. He is also on Zyvox and Flagyl antibiotics. The patient's potassium is 3.8 and sodium is 120. He is receiving potassium chloride 20 mEq and normal saline 1000 mL at 75 mL/h. We will continue to monitor the patient's bowel movements, and follow the plan of care per primary care physician. This plan was discussed with Dr. Gold. Please call us for any further questions or concerns. Dictated by RYAN Peres for Kaleb Gold MD Physician Attestation I have seen and examined the patient. I have discussed and reviewed the note by Kelly DAVIS and agree with findings and plan as documented. In brief, Mr. Matthews is a 74 year old man with history of CLL and metastatic lung cancer who presents with acute diarrhea (3 weeks) and volume depletion secondary to CDI colitis. He as recently started on Keytruda and Alimta last . We have started oral vancomycin yesterday. Hyponatremia worse today with diuresis. Marked leukocytosis improved. He is neutropenic. Tolerating clears. He is on IVFs and diuretics. I do not think he has SIADH in the setting of diarrhea and probable contraction alkalosis. He also does not appear volume overloaded on exam. I suspect his hyponatremia is secondary to GI losses. Will defer to nephrology. Advance diet as tolerated. I have stopped flagyl. MTDD
[2019-08-11] MEDS ORDERED: CALMOSEPTINE OINTMENT TOP PRN (11:59)
[2019-08-11] MEDS: LASIX IV SCH ×2 (12:08→22:01)
--- NOTE | 2019-08-11 12:53 | HEMO/ONC CONSULTATION ---
DATE: 08/10/2019 ATTENDING PHYSICIAN: Dr. Bryan. REQUESTING PHYSICIAN: Dr. Bryan. We appreciate this consult. CHIEF COMPLAINT: CLL/non-small cell lung cancer. HISTORY OF PRESENT ILLNESS: Mr. Lewis Matthews is a 74-year-old male, well known to Dr. Cortés with a history of non-small cell lung cancer, metastatic and unresectable, in addition to CLL. The patient has started Imbruvica Rituxan. The patient is followed closely in clinic. The patient presented to [facility] Emergency Department with complaints of nausea, vomiting, and diarrhea with dehydration. CT of the abdomen showed severe colitis with enlargement of liver lesion. The patient was admitted secondary to likely chemotherapy-induced colitis, severe volume depletion, and hyponatremia. We are consulted as he is well known to us. PAST MEDICAL HISTORY: 1. Prostate cancer, status post prostatectomy. 2. CLL. 3. Non-small cell lung cancer. 4. Gastroesophageal reflux disease. 5. Hiatal hernia. 6. History of small-bowel obstruction. 7. COPD. 8. Tuberculosis. 9. Chronic back pain. PAST SURGICAL HISTORY: 1. Prostatectomy. 2. Umbilical hernia repair. 3. Small and large bowel resection. 4. Full teeth extraction. SOCIAL HISTORY: The patient smokes one-half pack of cigarettes daily since the age of 8. He does not use alcohol or illicit drugs. FAMILY HISTORY: Negative for any hematologic or oncologic disease. MEDICATIONS ON ADMISSION: 1. Wittmann. 2. Imbruvica. ALLERGIES: Lipitor and naproxen. REVIEW OF SYSTEMS: A 14-point review of systems was obtained and is negative, except for mentioned in the HPI. PHYSICAL EXAMINATION: General: Mr. Matthews is a 74-year-old male, lying supine in bed in no immediate distress. Vital Signs: Temperature 98.8 degrees, blood pressure 129/61, heart rate 108, respirations 20, O2 saturation 95% on room air. HEENT: Normocephalic, atraumatic. Mucous membranes are pale and somewhat dry. Sclerae anicteric. Extraocular movements intact. Neck: Supple. Lungs: Clear to auscultation bilaterally. Chest expansion equal bilaterally. Cardiovascular: S1, S2 is heard. The patient is tachycardic. Abdomen: Soft, tender to palpation throughout. Extremities: Without clubbing or cyanosis. The patient does have 1+ bilateral lower extremity edema. Dermatologic: No rashes, bruises, or lesions. Neurologic: The patient is awake, alert, and oriented x3. He has no focal deficits. LABORATORY DATA: Hemoglobin 9.1, hematocrit 27.6, white blood cell count is 31.47, platelet count 164,000. ANC 0.16, ALC 30.92. Sodium 121, potassium 3.4, chloride 84, CO2 is 27, BUN 15, creatinine 0.5, glucose is 93, calcium 7.0, and magnesium is 1.8. ASSESSMENT AND PLAN: 1. Chronic lymphocytic leukemia with positive lymphadenopathy. The patient is currently on Imbruvica. He has completed Rituxan with progression. Last dose of Rituxan was in 2014. 2. Non small-cell lung cancer, on Keytruda/Alimta/carboplatin. He is status post cycle 1 on 08/05/2019. We will resume after acute illness resolves. 3. Colitis. The patient did test positive for Clostridium difficile and is currently on Flagyl intravenously. Will continue to monitor. 4. Hyponatremia, known. The patient is somnolent, but oriented x3. 5. Severe volume depletion. The patient is currently receiving intravenous fluids. We will follow along with you and make further recommendations pending outcomes. The above reflects the history, exam, assessment, and plan of Dr. Cotrés. Dictated by RYAN Carvalho for Xiang Cortés MD cc: RYAN Carvalho MD
[2019-08-11] MEDS: ZYLOPRIM PO SCH ×2 (14:02→22:02)
[2019-08-11] MEDS: POTASSIUM CHLORIDE 20 MEQ in NS 1,000 ML IV SCH (16:38)
--- NOTE | 2019-08-11 17:06 | NEPHROLOGY CONSULTATION ---
DATE: 08/11/2019 REASON FOR CONSULTATION: Hyponatremia. HISTORY OF PRESENT ILLNESS: Mr. Matthews is a 74-year-old man with chronic lymphocytic leukemia as well as metastatic lung cancer. He had his 1st chemotherapy treatment with Dr. Cortés one week ago. He had nausea vomiting diarrhea and therefore came to the emergency room where he was diagnosed with colitis and an enlarged liver lesion. His initial evaluation found blood pressure 137/90, heart rate 123, respirations 24. He was treated with IV fluid resuscitation totalling 4 L over the 1st 36 hours. He continued to have liquid bowel movements. In that context, his serum sodium was 121. Repeat 120 today and it is on this basis, the were consulted for assistance. PAST MEDICAL HISTORY: As above. Ongoing smoker. History of reflux, COPD, tuberculosis. HOME MEDICATIONS: Manter. ALLERGIES: Naproxen and Atorvastatin. SOCIAL HISTORY: Again ongoing smoker. No alcohol. and lives with his . FAMILY HISTORY: Otherwise noncontributory. REVIEW OF SYSTEMS: Otherwise noncontributory. PHYSICAL EXAMINATION: Vital Signs: Blood pressure 139/56, heart rate 116, respirations 18, afebrile. Generally: He is a chronically ill, disheveled white male, lying at 20 degrees, no distress. Skin: Warm and dry with some bruising. HEENT: Conjunctivae are pink. Pupils are equal. Oropharynx is clear and dry. Neck: Supple. Neck veins are visible. Cardiovascular: PMI not palpable. Regular rate and rhythm with tachycardia and a gallop. Lungs: Have equal breath sounds. Coarse, no crackles. Abdomen: Soft, nontender. Bowel sounds present. No organomegaly or masses. Extremities: One to 2+ edema. No clubbing or cyanosis. Neurologic: Grossly nonfocal but his speech is slurred and he loses track of the conversation quickly. IMPRESSION: Hyponatremia. Hypervolemic by exam and hypoalbuminemic. He is receiving IV albumin. Also normal saline at 75 mL an hour. I will add furosemide 40 mg IV twice daily and follow his sodium. Check urine osmolality and urine sodium. cc: Conner Benjamin MD
[2019-08-12] MEDS: NORCO-7.5 PO PRN ×4 (00:42→18:39)
[2019-08-12] MEDS: VANCOCIN PO SCH ×4 (02:58→20:48)
[2019-08-12] MEDS: POTASSIUM CHLORIDE 20 MEQ in NS 1,000 ML IV SCH ×2 (02:59→18:39)
[2019-08-12] MEDS: DUONEB (A & A) INH SCH ×4 (04:22→21:10)
[2019-08-12 06:30] LABS: AGAP 12; ALB/GLOB RATIO 1.4; ALBUMIN 2.3 g/dL (3.5-5.0); ALKALINE PHOSPHATASE 91 U/L (32-122); BUN 11 mg/dL (8-22); CALCIUM 7.1 mg/dL (8.8-10.2); CHLORIDE 85 mmol/L (98-107); COSMO 246; CREATININE 0.5 mg/dL (0.7-1.2); ESTIMATED GFR > 60; GLUCOSE 73 mg/dL (70-104); GOT 54 U/L (10-34); GPT 25 U/L (10-44); POTASSIUM 3.2 mmol/L (3.5-5.1); SODIUM 123 mmol/L (136-145); TCO2 26 mmol/L (25-35); TOTAL BILIRUBIN 1.01 mg/dL (0.20-1.00)
[2019-08-12 07:59] LABS: BASO# 0.01 X1000 (0.0-0.2); BASO% 0.1 % (0.0-0.8); EOS# 0.02 X1000 (0.0-0.7); EOS% 0.1 % (0.0-10.0); HEMATOCRIT 26.6 % (42.0-52.0); HEMOGLOBIN 8.7 g/dL (14.0-18.0); IMM GRAN# 0.02 X1000 (0.0-0.04); IMM GRAN% 0.1 % (0.0-0.5); LYMPH# 17.77 X1000 (1.2-3.4); LYMPH% 96.4 % (20.5-51.1); MCH 29.3 PG (27-31); MCHC 32.7 g/dL (33-37); MCV 89.6 FL (81-99); MONO# 0.28 X1000 (0.11-0.59); MONO% 1.5 % (1.7-9.3); MPV 9.2 FL (7.4-10.4); NEUT# 0.33 X1000 (1.4-6.5); NEUT% 1.8 % (42.2-75.2); PLT 66 X1000 (130-400); RBC 2.97 XMIL (4.7-6.1); RDW 16.3 % (11.5-14.5); WBC 18.43 X1000 (4.8-10.8)
[2019-08-12 08:04] LABS: LYMPHS 97 % (21-51); MONO 2 % (1-9); SEGS 1 % (42-75)
[2019-08-12] MEDS: ZYLOPRIM PO SCH ×2 (08:30→20:48)
[2019-08-12] MEDS: LASIX IV SCH ×2 (08:30→20:47)
--- NOTE | 2019-08-12 11:06 | PROGRESS NOTE ---
DATE: 08/12/2019 SUBJECTIVE: This patient is still complaining of abdominal pain. He has C. difficile colitis. He has been placed on IV Flagyl and p.o. vancomycin, I will continue with same management. Gastroenterology Department on board as well as Hematology/Oncology Department. OBJECTIVE: Vital Signs: Temperature 98.4 degrees, pulse 87, respiratory rate 17, blood pressure 134/63, oxygen saturation 94% on room air. HEENT: Head normocephalic, no trauma. PERRLA. Neck: Supple. No JVD. No masses. Central trachea. Chest: Mild expiratory wheezing and some crepitus scattered. Decreased breath sounds globally. Abdomen: Soft, generalized tenderness to palpation, is distended. I cannot evaluate organomegaly due to his tenderness. Extremities: Two plus lower extremity edema. No clubbing. No cyanosis. Neurological: The patient is awake, he is alert. He is following commands. LABORATORY: WBC 18.4, hemoglobin 8.7, hematocrit 26.6, platelets 66,000, neutrophil count 0.33. Sodium 123, potassium 3.2, chloride 85, bicarbonate 26, BUN 11, creatinine 0.5, glucose 73, calcium 7.1, AST 54, ALT 25, alkaline phosphatase 91, albumin 2.3. ASSESSMENT AND PLAN: 1. Sepsis due to C. difficile colitis, we will continue with antibiotics. Gastroenterology Department on board. 2. Electrolyte imbalance with hyponatremia, hypochloremia. Continue with same management. He is getting IV fluids, also he has been getting some doses of Lasix per Nephrology Department. Sodium level is slightly better compared with yesterday. We will monitor. 3. Hypokalemia. We will continue to replace through the IV fluids. 4. Hypocalcemia, better. 5. Pancytopenia, platelet count is getting worse. Hematology/Oncology on board. We will monitor for now. 6. CLL with possible lymphadenopathy, per Hematology Oncology Department. 7. Non-small cell lung cancer. We will continue to monitor and they will resume treatment after acute illness resolves. 8. Volume depletion. Continue with IV fluids. 9. History of cavitary lung lesions. Aware. Apparently, QuantiFERON gold has been done before, and they were negative. 10. History of chronic obstructive pulmonary disease. He is having some mild wheezing but I think he is breathing better now. 11. Deep vein thrombosis prophylaxis with SCDs given his thrombocytopenia. 12. Gastrointestinal prophylaxis. He is on proton pump inhibitors. 13. Chronic pain syndrome due to cancer. Aware. Continue with the same treatment. cc: Mu Reza MD
[2019-08-12] MEDS: PROTONIX IV SCH ×3 (13:05→22:37)
--- NOTE | 2019-08-12 13:59 | PROVIDER PROGRESS NOTE ---
Progress Note S: No acute overnight events. He continues to have abdominal pain and diarrhea. He is tolerating clear liquid diet. Afebrile. O: Last Vital Signs Temp 97.9 F 08/12/19 13:46 Pulse 122 H 08/12/19 13:46 Resp 15 08/12/19 13:46 BP 143/61 08/12/19 13:46 Pulse Ox 97 08/12/19 13:46 Height 5 ft 8 in Weight 151 lb 9.6 oz GEN: awake, alert, NAD HEENT: anicteric, MMM NECK: supple, NVD PULM: CTAB anteriorly ABD: mildy distended, TTP throughout, no peritonitis, BS present EXT: no cce NEURO: nonfocal 08/12/19 08/12/19 05:40 05:40 WBC 18 Hgb 8.7 Plt Count 66 Sodium 123 L Potassium 3.2 L D Chloride 85 L Carbon Dioxide 26 BUN 11 Creatinine 0.5 L Total Bilirubin 1.01 H AST 54 H ALT 25 Alkaline Phosphatase 91 Total Protein 4.0 L Albumin 2.3 L A/P: Mr. Matthews is a 74 year old man with history of CLL and metastatic lung cancer who presents severe C diff colitis. He continues to have diarrhea. He is on day #2 of 10-14 day course of oral vancomycin. He remains hyponatremic. Leukocytosis improving. Remain neutropenic. More thrombocytopenic as well likely from recent chemotherapy with Keytruda and Alimta. I believe he is volume deplete would consider stopping diuretics and give fluids; defer to nephrology. # Cdiff colitis # Hyponatremia # Anemia # CLL # Hypokalemia # Metastatic lung cancer # Thrombocytopenia Will follow with you. Please call with questions.
[2019-08-13] MEDS: NORCO-7.5 PO PRN ×4 (02:02→21:20)
[2019-08-13] MEDS: VANCOCIN PO SCH ×4 (02:03→21:21)
[2019-08-13] MEDS: DUONEB (A & A) INH SCH ×4 (03:46→23:01)
[2019-08-13 06:00] LABS: BASO# 0.03 X1000 (0.0-0.2); BASO% 0.2 % (0.0-0.8); EOS# 0.04 X1000 (0.0-0.7); EOS% 0.2 % (0.0-10.0); HEMOGLOBIN 9.4 g/dL (14.0-18.0); IMM GRAN# 0.04 X1000 (0.0-0.04); IMM GRAN% 0.2 % (0.0-0.5); LYMPH# 18.23 X1000 (1.2-3.4); LYMPH% 92.9 % (20.5-51.1); MCH 29.7 PG (27-31); MCHC 33.6 g/dL (33-37); MCV 88.3 FL (81-99); MONO# 0.51 X1000 (0.11-0.59); MONO% 2.6 % (1.7-9.3); MPV 9.8 FL (7.4-10.4); NEUT# 0.77 X1000 (1.4-6.5); NEUT% 3.9 % (42.2-75.2); PLT 47 X1000 (130-400); RBC 3.17 XMIL (4.7-6.1); RDW 16.4 % (11.5-14.5); WBC 19.62 X1000 (4.8-10.8)
[2019-08-13 06:36] LABS: AGAP 14; ALB/GLOB RATIO 1.4; ALBUMIN 2.3 g/dL (3.5-5.0); ALKALINE PHOSPHATASE 130 U/L (32-122); BUN 10 mg/dL (8-22); CHLORIDE 83 mmol/L (98-107); COSMO 240; CREATININE 0.4 mg/dL (0.7-1.2); ESTIMATED GFR > 60; GLUCOSE 74 mg/dL (70-104); GOT 131 U/L (10-34); GPT 49 U/L (10-44); MAGNESIUM 1.4 mg/dL (1.5-2.7); PHOSPHORUS 2.9 mg/dL (2.7-4.5); POTASSIUM 3.7 mmol/L (3.5-5.1); TCO2 23 mmol/L (25-35); TOTAL BILIRUBIN 0.97 mg/dL (0.20-1.00); TOTAL PROTEIN 3.9 g/dL (6.3-8.3)
[2019-08-13 06:37] LABS: SODIUM 120 mmol/L (136-145)
--- NOTE | 2019-08-13 07:12 | Diag Imaging Result Doc PS360 ---
EXAM: ABDOMEN FLAT/UPRIGHT HISTORY: pain TECHNIQUE: Flat and upright two views COMPARISON: 08/10/2019 FINDINGS: No free air beneath the diaphragm. Mild distended air-filled loops of small bowel. No organomegaly. Mild scoliosis with degenerative spine changes. Moderate to prominent atherosclerosis. There are multiple pelvic phleboliths. IMPRESSION: No bowel obstruction. Possible ileus. Electronically signed by Anuel Tao 08/13/2019 7:10 AM
[2019-08-13 08:02] LABS: LYMPHS 92 % (21-51); NRBC 1 % (0-0); SEGS 8 % (42-75)
[2019-08-13] MEDS: POTASSIUM CHLORIDE 20 MEQ in NS 1,000 ML IV SCH ×2 (08:49→21:21)
[2019-08-13] MEDS: ZYLOPRIM PO SCH ×2 (08:50→21:21)
[2019-08-13] MEDS ORDERED: MAGNESIUM SULFATE 2 GM/S.W.I. 2 GM/50 ML IVPB IV ONE (09:23)
--- NOTE | 2019-08-13 09:47 | PROGRESS NOTE ---
DATE: 08/13/2019 SUBJECTIVE: The patient is still complaining of abdominal pain, but seems to be more soft and less painful. He is still having diarrhea, though. We will continue the treatment for Clostridium difficile colitis with IV Flagyl and p.o. vancomycin. Gastroenterology Department and Hematology/Oncology Department on board. He had a low-grade fever at 100.3 degrees. OBJECTIVE: Vital Signs: Temperature 99 degrees, pulse 130, respiratory rate 18, blood pressure 118/68, oxygen saturation 98 on room air. HEENT: Head normocephalic, no trauma. PERRLA. Neck: Supple. No JVD. No masses. Central trachea. Chest: Mild end-expiratory wheezing. Some crepitus scattered. Decreased breath sounds globally. Abdomen: Soft. Generalized tenderness to palpation. It is distended, but getting better. I cannot evaluate organomegaly due to his tenderness. Extremities: There is 1+ to 2+ lower extremity edema. No clubbing. No cyanosis. Neurological examination: The patient is alert. He is following commands. He is oriented. LABORATORY: WBC 19.6, hemoglobin 9.4, hematocrit 28, platelets 47. Sodium 120, potassium 3.7, chloride 83, bicarbonate 23. BUN 10, creatinine 0.4, glucose 74, calcium 7, magnesium 1.4. AST 131, ALT 49, alkaline phosphatase 130, albumin 2.3. ASSESSMENT AND PLAN: 1. Sepsis due to Clostridium difficile colitis. Continue antibiotics. Gastroenterology Department on board. 2. Electrolyte imbalance with hyponatremia, hypomagnesemia, hypocalcemia. I will replace the magnesium level. He has been hyponatremic. Nephrology Department on board. 3. Pancytopenia. Platelet count is getting worse. Hematology/Oncology on board. No signs of bleeding. 4. Chronic lymphocytic leukemia with possible lymphadenopathy, per Hematology/Oncology Department. 5. Non-small cell lung cancer. Continue to monitor. They will resume treatment after acute illness resolves. 6. Volume depletion. Continue intravenous fluids. 7. History of cavitary lung lesions, aware. Apparently, this patient's continued QuantiFERON gold has been done before and is negative. 8. History of chronic obstructive pulmonary disease; just scattered wheezing, but I think is better. 9. Deep vein thrombosis prophylaxis with sequential compression devices given his hyponatremia. 10. Gastrointestinal prophylaxis with proton pump inhibitors. 11. Chronic pain syndrome due to cancer. Continue with the same management. cc: Mu Reza MD
--- NOTE | 2019-08-13 11:38 | PROVIDER PROGRESS NOTE ---
Progress Note S: No acute overnight events. He continues to have diarrhea but with more consistency and less frequent. No vomiting. Afebrile. Abdominal pain slightly improved. O: Last Vital Signs Temp 98.3 F 08/13/19 11:17 Pulse 127 H 08/13/19 11:17 Resp 18 08/13/19 11:17 BP 129/60 08/13/19 11:17 Pulse Ox 96 08/13/19 11:17 Height 5 ft 8 in Weight 152 lb 9 oz GEN: awake, alert, NAD HEENT: anicteric, MMM NECK: supple, NVD PULM: CTAB anteriorly ABD: mildy distended, TTP throughout; however improved, no peritonitis, BS present EXT: no cce NEURO: nonfocal SKIN: tenting of skin LEs and UEs 08/13/19 08/13/19 05:28 05:28 WBC 19.62 H Hgb 9.4 L Plt Count 47 L Neut # (Auto) 0.77 L Sodium 120 L* Potassium 3.7 D Chloride 83 L Carbon Dioxide 23 L BUN 10 Creatinine 0.4 L Calcium 7.0 L* Magnesium 1.4 L AST 131 H ALT 49 H Alkaline Phosphatase 130 H Total Protein 3.9 L Albumin 2.3 L A/P: Mr. Matthews is a 74 year old man with history of CLL and metastatic lung cancer who presents severe C diff colitis. He continues to have diarrhea. He is on day #3 of 10-14 day course of oral vancomycin. His diarrhea is slowly improving per report. He remains hyponatremic. Leukocytosis stable. Neutropenia improving. More thrombocytopenic as well likely from recent chemotherapy with Keytruda and Alimta. He is clinically volume deplete with tenting of the skin lower and upper extremities. No edema in LEs. Some mild dependent edema but very minimal. LFTs increased today; will trend. # Cdiff colitis # Hyponatremia # Anemia # CLL # Hypokalemia # Metastatic lung cancer # Thrombocytopenia # Abnormal LFTs # Hepatic lesion Will follow with you. Please call with questions.
[2019-08-13] MEDS: PROTONIX IV SCH ×2 (12:08→22:04)
--- NOTE | 2019-08-13 15:23 | NEPHROLOGY PROGRESS NOTE ---
DATE: 08/13/2019 SUBJECTIVE: He is asleep, but arousable. He is alert and oriented, and able to answer questions without difficulty. No nausea or vomiting. Eating. Thirsty all the time. OBJECTIVE: Vital Signs: Blood pressure 129/60, heart rate 127, respiration 18, afebrile. General: No acute distress. Skin: Warm and dry. Heart: Irregular and tachycardic. Lungs: Equal. No crackles. Abdomen: Soft, nontender. Bowel sounds present. Extremities: With 2+ edema. No clubbing or cyanosis. IMPRESSION: Hyponatremia. Sodium is trending downward again. Urine osmolality of 470 at the time that his serum osmolality was 242 supports a diagnosis of syndrome of inappropriate antidiuretic hormone related to his lung cancer. He is moderately volume expanded, however. I will continue furosemide 20 mg oral twice daily today, in addition to his intravenous fluids, normal saline at 75 mL an hour with a goal of affecting modest rise in his sodium by diuresis of a hypotonic solution. Additionally, he has 3 cups of water, a cup of coffee, cup of juice and 2 water bottles at his chair side. I will place him on a fluid restriction and change his water over to sports drinks. Observe. cc: Conner Benjamin MD
[2019-08-13] MEDS: NEUPOGEN SUBQ SCH (16:18)
[2019-08-13] MEDS: LASIX PO SCH (21:21)
[2019-08-14] MEDS: VANCOCIN PO SCH ×4 (01:43→20:06)
[2019-08-14] MEDS: DUONEB (A & A) INH SCH ×4 (04:39→21:11)
[2019-08-14] MEDS: NORCO-7.5 PO PRN ×4 (05:26→23:49)
[2019-08-14 06:59] LABS: BASO# 0.04 X1000 (0.0-0.2); BASO% 0.2 % (0.0-0.8); EOS# 0.03 X1000 (0.0-0.7); EOS% 0.2 % (0.0-10.0); HEMATOCRIT 27.1 % (42.0-52.0); HEMOGLOBIN 8.9 g/dL (14.0-18.0); IMM GRAN# 0.05 X1000 (0.0-0.04); IMM GRAN% 0.3 % (0.0-0.5); LYMPH# 14.24 X1000 (1.2-3.4); LYMPH% 85.7 % (20.5-51.1); MCH 29.3 PG (27-31); MCHC 32.8 g/dL (33-37); MCV 89.1 FL (81-99); MONO% 4.8 % (1.7-9.3); MPV 9.8 FL (7.4-10.4); NEUT# 1.45 X1000 (1.4-6.5); NEUT% 8.8 % (42.2-75.2); PLT 38 X1000 (130-400); RBC 3.04 XMIL (4.7-6.1); RDW 16.6 % (11.5-14.5); WBC 16.61 X1000 (4.8-10.8)
[2019-08-14 07:31] LABS: AGAP 12; ALB/GLOB RATIO 1.3; ALBUMIN 2.1 g/dL (3.5-5.0); ALKALINE PHOSPHATASE 177 U/L (32-122); BUN 9 mg/dL (8-22); CHLORIDE 86 mmol/L (98-107); COSMO 246; CREATININE 0.4 mg/dL (0.7-1.2); ESTIMATED GFR > 60; GLUCOSE 89 mg/dL (70-104); GOT 133 U/L (10-34); GPT 53 U/L (10-44); MAGNESIUM 1.5 mg/dL (1.5-2.7); PHOSPHORUS 2.4 mg/dL (2.7-4.5); POTASSIUM 3.6 mmol/L (3.5-5.1); SODIUM 123 mmol/L (136-145); TCO2 25 mmol/L (25-35); TOTAL BILIRUBIN 0.83 mg/dL (0.20-1.00); TOTAL PROTEIN 3.7 g/dL (6.3-8.3)
[2019-08-14 08:11] LABS: LYMPHS 81 % (21-51); MONO 5 % (1-9); SEGS 14 % (42-75)
[2019-08-14 08:12] LABS: POIKILOCYTOSIS 1+
[2019-08-14] MEDS ORDERED: MAGNESIUM SULFATE 2 GM/S.W.I. 2 GM/50 ML IVPB IV ONE (08:13)
[2019-08-14] MEDS ORDERED: ALBUMIN 25% IV ONE (08:13)
[2019-08-14] MEDS ORDERED: CALCIUM GLUCONATE 4.65 MEQ in NS 50 ML IV ONE (08:13)
[2019-08-14 08:17] LABS: LARGE PLATELETS OCCASIONAL
[2019-08-14] MEDS: POTASSIUM CHLORIDE 20 MEQ in NS 1,000 ML IV SCH ×2 (09:46→23:50)
[2019-08-14] MEDS: LASIX PO SCH ×2 (09:47→20:06)
[2019-08-14] MEDS: NEUPOGEN SUBQ SCH (09:47)
--- NOTE | 2019-08-14 09:54 | PROGRESS NOTE ---
DATE: 08/14/2019 SUBJECTIVE: Patient is still complaining of abdominal pain, but this is much better. His diarrhea is better as well. His platelet count is dropping, but I believe I can advance his diet, and he is now on a neutropenic diet. OBJECTIVE: Vital Signs: Temperature 99.4 degrees, pulse 71, respiratory rate 20, blood pressure 125/70, oxygen saturation 95% on room air. HEENT: Head normocephalic, no trauma. PERRLA. Neck: Supple. No JVD. No masses. Central trachea. Chest: Mild end-expiratory wheezing. Some crepitus scattered. Decreased breath sounds globally. Abdomen: Soft. Generalized tenderness to palpation, but much better compared with yesterday. Extremities: There is 1+ to 2+ lower extremity edema. No clubbing. No cyanosis. Neurological examination: Alert. He is following commands. LABORATORY: WBC 16.6, hemoglobin 8.9, hematocrit 27.1, platelet 38. Sodium 123, potassium 3.6, chloride 86, bicarbonate 25. BUN 9, creatinine 0.4, glucose 89, calcium 7, phosphorus 2.4. AST 133, ALT 53, alkaline phosphatase 177, albumin 2.1. ASSESSMENT AND PLAN: 1. Sepsis due to Clostridium difficile colitis. Continue with the same management. Gastroenterology Department on board. He seems to be feeling better. 2. Electrolyte imbalance with hyponatremia, hypomagnesemia and hypocalcemia. I will replace the magnesium and the calcium, sodium seems to be a little bit better. 3. Pancytopenia. Platelet count is getting worse. Hematology/Oncology on board. No signs of bleeding. They have placed this patient on Neupogen as well. 4. Chronic lymphocytic leukemia with possible lymphadenopathy, continue to monitor. 5. Non-small cell lung cancer, continue to monitor. They will resume treatment after acute illness resolves. 6. Volume depletion. Continue with intravenous fluids. I think this is better. 7. History of cavitary lung lesions, aware. 8. History of chronic obstructive pulmonary disease, better. 9. Deep vein thrombosis prophylaxis with sequential compression devices given his thrombocytopenia. 10. Gastrointestinal prophylaxis with proton pump inhibitors. 11. Chronic pain syndrome due to cancer. Continue with the same management. cc: Mu Reza MD
[2019-08-14] MEDS ORDERED: SAMSCA PO ONE (10:29)
[2019-08-14] MEDS: ZYLOPRIM PO SCH ×2 (11:21→20:06)
[2019-08-14] MEDS: PROTONIX IV SCH ×2 (11:46→20:09)
--- NOTE | 2019-08-14 14:26 | NEPHROLOGY PROGRESS NOTE ---
DATE: 08/14/2019 SUBJECTIVE: He has been drinking Gatorade as his primary fluid intake since yesterday. No new complaints. OBJECTIVE: Vital Signs: Blood pressure 133/63, heart rate 117, respirations 20 afebrile. General: In no acute distress. Skin: Warm and dry. Heart: Regular. Lungs: Equal. Abdomen: Benign. Extremities: Minimal edema. IMPRESSION: Hyponatremia, likely syndrome of inappropriate antidiuretic hormone secretion. Sodium 124. Given the difficulty with correction and resistance to change, I have proceeded with a dose of Samsca today. I encouraged him to feel more liberal today with his fluid intake and we will watch his sodium carefully. cc: Conner Benjamin MD
--- NOTE | 2019-08-14 22:44 | PROVIDER PROGRESS NOTE ---
Progress Note S: Patient reports having 2 bowel movements yesterday. His abdominal pain is improving. Afebrile. No CP or SOB. No rectal bleeding. O: Last Vital Signs Temp 99.4 F 08/14/19 19:31 Pulse 111 H 08/14/19 21:11 Resp 17 08/14/19 21:11 BP 140/68 08/14/19 19:31 Pulse Ox 98 08/14/19 21:11 Height 5 ft 8 in Weight 151 lb 6 oz GEN: awake, alert, NAD HEENT: anicteric, MMM NECK: supple, NVD PULM: CTAB anteriorly ABD: mildy distended, TTP throughout; however improved, no peritonitis, BS present EXT: no cce NEURO: nonfocal SKIN: tenting of skin LEs and UEs LABS 08/14/19 08/14/19 06:06 06:06 WBC 16.61 H Hgb 8.9 L Plt Count 38 L* Neut # (Auto) 1.45 Sodium 123 L Potassium 3.6 Chloride 86 L Carbon Dioxide 25 BUN 9 Creatinine 0.4 L Glucose 89 Calcium 7.0 L* Total Bilirubin 0.83 AST 133 H ALT 53 H Alkaline Phosphatase 177 H Total Protein 3.7 L Albumin 2.1 L A/P: Mr. Matthews is a 74 year old man with history of CLL and metastatic lung cancer who presents severe C diff colitis. His diarrhea is improving. He is on day #4 of 14 day course of oral vancomycin. Leukocytosis improving. Neutropenia resolved. Thrombocytopenic. No signs of overt bleeding. Hyponatremia improved. # Cdiff colitis # Anemia # Hyponatremia # CLL # Metastatic lung cancer # Thrombocytopenia # Abnormal LFTs # Hepatic lesion Will follow with you. Please call with questions.
[2019-08-15] MEDS: VANCOCIN PO SCH ×4 (01:02→20:58)
[2019-08-15] MEDS: DUONEB (A & A) INH SCH ×4 (03:26→21:28)
[2019-08-15 06:45] LABS: BASO# 0.06 X1000 (0.0-0.2); BASO% 0.4 % (0.0-0.8); EOS# 0.02 X1000 (0.0-0.7); EOS% 0.1 % (0.0-10.0); HEMATOCRIT 27.5 % (42.0-52.0); IMM GRAN# 0.02 X1000 (0.0-0.04); IMM GRAN% 0.1 % (0.0-0.5); LYMPH# 13.46 X1000 (1.2-3.4); LYMPH% 84.9 % (20.5-51.1); MCH 29.4 PG (27-31); MCHC 32.7 g/dL (33-37); MCV 89.9 FL (81-99); MONO# 0.72 X1000 (0.11-0.59); MONO% 4.5 % (1.7-9.3); MPV 10.1 FL (7.4-10.4); NEUT# 1.57 X1000 (1.4-6.5); PLT 39 X1000 (130-400); RBC 3.06 XMIL (4.7-6.1); RDW 16.9 % (11.5-14.5); WBC 15.85 X1000 (4.8-10.8)
[2019-08-15 06:58] LABS: ESTIMATED GFR > 60
[2019-08-15 07:04] LABS: AGAP 12; ALB/GLOB RATIO 1.5; ALBUMIN 2.4 g/dL (3.5-5.0); ALKALINE PHOSPHATASE 216 U/L (32-122); BUN 5 mg/dL (8-22); CALCIUM 7.1 mg/dL (8.8-10.2); CHLORIDE 89 mmol/L (98-107); COSMO 257; CREATININE 0.5 mg/dL (0.7-1.2); GLUCOSE 107 mg/dL (70-104); GOT 113 U/L (10-34); GPT 49 U/L (10-44); POTASSIUM 3.4 mmol/L (3.5-5.1); SODIUM 129 mmol/L (136-145); TCO2 28 mmol/L (25-35); TOTAL BILIRUBIN 0.73 mg/dL (0.20-1.00)
[2019-08-15] MEDS: LASIX PO SCH ×2 (09:21→20:58)
[2019-08-15] MEDS: ZYLOPRIM PO SCH ×2 (09:21→20:58)
[2019-08-15] MEDS: PROTONIX IV SCH ×2 (09:21→20:58)
[2019-08-15] MEDS: NORCO-7.5 PO PRN ×3 (09:21→22:50)
--- NOTE | 2019-08-15 09:48 | PROGRESS NOTE ---
DATE: 08/15/2019 SUBJECTIVE: The patient seems to be better. He is tolerating p.o. His diarrhea is better as well. Platelet count about the same compared with yesterday. Diet has been advanced. He is still tachycardic. OBJECTIVE: Vital Signs: Temperature 98.4 degrees, pulse 124, respiratory rate 20, blood pressure 145/63, oxygen saturation 96 on room air. HEENT: Head normocephalic. No trauma. PERRLA. Neck: Supple. No JVD. No masses. Central trachea. Chest: Chest coarse breath sounds bilaterally with some crepitus at the bases. Abdomen: Soft. Generalized tenderness to palpation, but better. No signs of peritoneal irritation. Extremities: There is 1+ to 2+ lower extremity edema. No clubbing. No cyanosis. Neurological: The patient is alert. He is following commands. LABORATORY DATA: WBC 15.8, hemoglobin 9, hematocrit 27.5, platelets 39,000. Sodium 129, potassium 3.4, chloride 89, bicarbonate 28, BUN 5, creatinine 0.5, glucose 107, calcium 7.1. AST 113, ALT 49, alkaline phosphatase 216, albumin 2.4. ASSESSMENT AND PLAN: 1. Sepsis due to Clostridium difficile colitis. Continue with the same management. Gastroenterology Department on board. He seems to be getting better. 2. Electrolyte imbalance with hyponatremia, hypomagnesemia, hypocalcemia. We will continue to monitor this closely. He is still hyponatremic, but much better compared with a few days ago. I will replace his potassium through his intravenous fluid. 3. Pancytopenia. The platelet count is about the same compared with yesterday. Hematology/Oncology Department on board. They have placed this patient on Neupogen as well. The neutrophil count is better. 4. Chronic lymphocytic leukemia with possible lymphadenopathy. Continue to monitor. 5. Non-small cell lung cancer. Continue to monitor. They will probably resume treatment after acute illness resolves. 6. Volume depletion. He seems to be hydrated. He is tolerating by mouth. 7. History of cavitary lung lesions. Aware. 8. History of chronic obstructive pulmonary disease, better. 9. Deep vein thrombosis prophylaxis with sequential compression devices given his thrombocytopenia. 10. Gastrointestinal prophylaxis with proton pump inhibitors. 11. Chronic pain syndrome due to cancer. Continue with the same management. He is not complaining of too much pain today. cc: Mu Reza MD
[2019-08-15] MEDS: NEUPOGEN SUBQ SCH (10:25)
[2019-08-15] MEDS: POTASSIUM CHLORIDE 20 MEQ in NS 1,000 ML IV SCH (12:38)
[2019-08-15] MEDS ORDERED: LOPRESSOR PO SCH (13:00)
[2019-08-15] MEDS ORDERED: CARDIZEM IV ONE (13:20)
[2019-08-15] MEDS: CARDIZEM 100 MG/NS 100 MG/100 ML IVPB IV SCH ×2 (13:56→22:44)
--- NOTE | 2019-08-15 14:38 | EKG Report ---
Test Performed on : 08/15/2019 11:21:54 AM Test Reason : possible change in rhythm Blood Pressure : / mmHG Vent. Rate : 129 BPM Atrial Rate : 326 BPM P-R Int : 000 ms QRS Dur : 120 ms QT Int : 354 ms P-R-T Axes : 000 018 025 degrees QTc Int : 518 ms Atrial flutter. with variable AV block. Low voltage QRS Right bundle branch block Abnormal ECG When compared with ECG of 09-AUG-2019 14:23, (Unconfirmed) Atrial flutter. has replaced Sinus rhythm. Confirmed by Manuelito CASAS, Jatinder ([id number]) on 08/17/2019 8:53:34 AM
--- NOTE | 2019-08-15 20:49 | EKG Report ---
Test Performed on : 08/15/2019 6:38:58 PM Test Reason : rhythm Blood Pressure : / mmHG Vent. Rate : 091 BPM Atrial Rate : 091 BPM P-R Int : 174 ms QRS Dur : 146 ms QT Int : 412 ms P-R-T Axes : 049 000 022 degrees QTc Int : 506 ms Normal sinus rhythm. Right bundle branch block Abnormal ECG When compared with ECG of 15-AUG-2019 11:21, (Unconfirmed) Sinus rhythm. has replaced Atrial flutter. Confirmed by Manuelito CASAS, Jatinder ([id number]) on 08/17/2019 8:54:32 AM
[2019-08-15] MEDS: SODIUM CHLORIDE 0.9% INJ SCH (20:58)
--- NOTE | 2019-08-16 00:02 | PROVIDER PROGRESS NOTE ---
Progress Note GI PROGRESS NOTE 08/15/2019 S: Patient reports significant improvement in diarrhea. He denies any abdominal pain, tolerating PO. No N/V, rectal bleeding or melena. O: Last Vital Signs Temp 98.2 F 08/15/19 20:00 Pulse 90 08/15/19 21:28 Resp 21 08/15/19 21:28 BP 124/70 08/15/19 20:00 Pulse Ox 98 08/15/19 21:28 Height 5 ft 8 in Weight 152 lb 6.4 oz GEN: awake, alert, NAD HEENT: anicteric, MMM NECK: supple, NVD PULM: CTAB anteriorly ABD: mildy distended, NT, no peritonitis, BS present EXT: no cce NEURO: nonfocal LABS 08/15/19 08/15/19 06:09 06:09 WBC 15.85 H Hgb 9.0 L Plt Count 39 L* Neut # (Auto) 1.57 Sodium 129 L Potassium 3.4 L Chloride 89 L BUN 5 L Creatinine 0.5 L Glucose 107 H Total Bilirubin 0.73 AST 113 H ALT 49 H Alkaline Phosphatase 216 H Total Protein 4.0 L Albumin 2.4 L A/P: Mr. Matthews is a 74 year old man with history of CLL and metastatic lung cancer who presents severe C diff colitis. His diarrhea is improving. He is on day #5 of 14 day course of oral vancomycin. Leukocytosis improving. Neutropenia resolved. Thrombocytopenic. No signs of overt bleeding. Hyponatremia improved. No overt GI bleeding. He is tolerating PO intake. # Cdiff colitis # Anemia # Hyponatremia # CLL # Metastatic lung cancer # Thrombocytopenia # Abnormal LFTs # Hepatic lesion Will sign off. Please call with questions
[2019-08-16] MEDS: VANCOCIN PO SCH ×4 (01:21→21:51)
[2019-08-16] MEDS: POTASSIUM CHLORIDE 20 MEQ in NS 1,000 ML IV SCH ×2 (01:22→02:36)
[2019-08-16] MEDS: DUONEB (A & A) INH SCH ×4 (03:20→23:36)
[2019-08-16] MEDS: NORCO-7.5 PO PRN ×3 (05:07→18:27)
[2019-08-16] MEDS: CARDIZEM 100 MG/NS 100 MG/100 ML IVPB IV SCH ×2 (05:59→16:17)
[2019-08-16 06:28] LABS: BASO# 0.08 X1000 (0.0-0.2); BASO% 0.4 % (0.0-0.8); EOS# 0.07 X1000 (0.0-0.7); EOS% 0.3 % (0.0-10.0); HEMATOCRIT 26.3 % (42.0-52.0); HEMOGLOBIN 8.4 g/dL (14.0-18.0); IMM GRAN# 0.04 X1000 (0.0-0.04); IMM GRAN% 0.2 % (0.0-0.5); LYMPH# 16.54 X1000 (1.2-3.4); MCHC 31.9 g/dL (33-37); MCV 90.7 FL (81-99); MONO# 1.17 X1000 (0.11-0.59); MONO% 5.8 % (1.7-9.3); NEUT# 2.27 X1000 (1.4-6.5); NEUT% 11.3 % (42.2-75.2); PLT 54 X1000 (130-400); WBC 20.17 X1000 (4.8-10.8)
[2019-08-16 06:48] LABS: AGAP 9; ALB/GLOB RATIO 1.4; ALBUMIN 2.1 g/dL (3.5-5.0); ALKALINE PHOSPHATASE 240 U/L (32-122); BUN 5 mg/dL (8-22); CHLORIDE 93 mmol/L (98-107); COSMO 257; CREATININE 0.5 mg/dL (0.7-1.2); ESTIMATED GFR > 60; GLUCOSE 119 mg/dL (70-104); GOT 91 U/L (10-34); GPT 45 U/L (10-44); MAGNESIUM 1.4 mg/dL (1.5-2.7); PHOSPHORUS 2.7 mg/dL (2.7-4.5); POTASSIUM 3.9 mmol/L (3.5-5.1); SODIUM 129 mmol/L (136-145); TCO2 27 mmol/L (25-35); TOTAL BILIRUBIN 0.58 mg/dL (0.20-1.00); TOTAL PROTEIN 3.6 g/dL (6.3-8.3)
[2019-08-16 06:49] LABS: CALCIUM 6.9 mg/dL (8.8-10.2)
[2019-08-16] MEDS ORDERED: CALCIUM GLUCONATE 1 GM in NS 50 ML IV ONE (07:04)
[2019-08-16 07:33] LABS: LYMPHS 56 % (21-51); SEGS 44 % (42-75)
[2019-08-16] MEDS ORDERED: CALCIUM GLUCONATE 4.65 MEQ in NS 50 ML IV ONE (08:03)
[2019-08-16] MEDS ORDERED: MAGNESIUM SULFATE 2 GM/S.W.I. 2 GM/50 ML IVPB IV ONE (08:03)
[2019-08-16] MEDS: PROTONIX IV SCH ×2 (08:42→21:50)
[2019-08-16] MEDS: SODIUM CHLORIDE 0.9% INJ SCH ×2 (08:42→21:51)
[2019-08-16] MEDS: LASIX PO SCH (08:43)
[2019-08-16] MEDS: ZYLOPRIM PO SCH ×2 (08:43→21:51)
--- NOTE | 2019-08-16 09:50 | EKG Report ---
Test Performed on : 08/16/2019 09:35:52 AM Test Reason : A Flutter Blood Pressure : / mmHG Vent. Rate : 085 BPM Atrial Rate : 085 BPM P-R Int : 188 ms QRS Dur : 142 ms QT Int : 428 ms P-R-T Axes : 043 005 028 degrees QTc Int : 509 ms Normal sinus rhythm. Right bundle branch block Abnormal ECG When compared with ECG of 15-AUG-2019 18:38, (Unconfirmed) No significant change was found Confirmed by Manuelito CASAS, Jatinder ([id number]) on 08/17/2019 8:58:18 AM
--- NOTE | 2019-08-16 10:20 | PROGRESS NOTE ---
DATE: 08/16/2019 SUBJECTIVE: The patient seems to be doing better. Yesterday, he started having a flutter with RVR, and I have placed this patient on diltiazem drip. Today the rhythm is better controlled. He is still on the diltiazem drip. I did not put this patient on anticoagulation due to his low platelet count, I have consulted Cardiology Department to evaluate this patient. OBJECTIVE: Vital Signs: Temperature 98.8 degrees, pulse 85, respiratory rate 18, blood pressure 107/53, oxygen saturation 96 on room air. HEENT: Head normocephalic, no trauma. PERRLA. Neck: Supple. No JVD. No masses. Central trachea. Chest: Coarse breath sounds mostly at the bases with some crepitus. Abdomen: Soft. Some generalized tenderness to palpation but much better. No signs of peritoneal irritation. Extremities: 1+lower extremity edema. No clubbing. No cyanosis. Neurological: The patient is alert. He is following commands. He is oriented. LABORATORY: WBC 20.1, hemoglobin 8.4, hematocrit 26.3, platelets 54,000. Sodium 129, potassium 3.9, chloride 93, bicarbonate 27, BUN 5, creatinine 0.5, glucose 119, calcium 6.9, magnesium 1.4. AST 91, ALT 45, alkaline phosphatase 240, albumin 2.1. ASSESSMENT AND PLAN: 1. Sepsis due to C difficile colitis. Continue with same management. Gastroenterology Department on board. He is much better. 2. Atrial flutter with rapid ventricular response. I have placed this patient yesterday on diltiazem drip. I did not use any kind of anticoagulation due to his low platelet count. The rhythm seems to be normal, but I am getting a new EKG and I have consulted Cardiology Department to evaluate this patient. 3. Electrolyte imbalance including hyponatremia, hypomagnesemia, hypocalcemia. We will replace today the calcium and magnesium. Hyponatremia seems to be getting better. Potassium is within normal limits today. 4. Pancytopenia, this is getting better. Platelet count is improving, as well as his neutrophil count. 5. Chronic lymphocytic leukemia with possible lymphadenopathy. Continue to monitor. 6. Non-small cell lung cancer, for now we will continue with the same management. They will probably resume treatment after acute illness resolves. 7. Volume depletion. He seems to be hydrated at this moment. He is tolerating by mouth as well. 8. History of cavitary lung lesions, aware. 9. History of chronic obstructive pulmonary disease, not in exacerbation. 10. Deep vein thrombosis prophylaxis with sequential compression devices given his thrombocytopenia. 11. Gastrointestinal prophylaxis with proton pump inhibitors. 12. Chronic pain syndrome due to cancer. Continue with same management. cc: Mu Reza MD
--- NOTE | 2019-08-16 16:47 | PROVIDER PROGRESS NOTE ---
Progress Note Subjective: patient lying in bed arrouses to verbal stimuli. Denies any uremic complaints. Objective: Temperature 98.3, pulse 77, respirations 14, blood pressure 119/56, 02 sat 97% on room air. Next line General: chronically ill appearing white male lying in bed in no acute distress Skin: pale, warm, dry scattered braces. Neck: supple, no JVD observe. Cardiovascular: S1, S2, regular rate and rhythm no murmur gallop noted. He remains on a Cardizem drip. Respiratory: clear with equal air excursion anteriorly Abdomen: soft, nontender, nondistended. Bowel sounds present. Gu: non-inspected Extremities: 1+ pitting edema to bilateral lower extremities Neurological: alert and oriented to person, place, and time. Labs: WBC 20, hemoglobin 8.4, hematocrit 26, platelet count 54, sodium 129, potassium 3.9, chloride 93, carbon dioxide 27, BUN five, creatinine 0.5. Intake 1574, output 1 incontinent void. Impression: Hyponatremia. Acceptable. Received one dose of tolvaptan. I will stop fluids and furosemide. Continue free water/fluid restriction. We will sign off. Nutrition. Encouraging to eat, order supplements
--- NOTE | 2019-08-16 21:40 | CARDIOLOGY CONSULTATION ---
DATE: 08/16/2019 CHIEF COMPLAINT ON PRESENTATION: Apparent nausea, vomiting, diarrhea, weakness. HISTORY OF PRESENT ILLNESS: Mr. Matthews is a 74-year-old white male with a history of CLL, lung cancer, and he presented on 08/09/2019 with complaints as listed above. Over the course of the hospitalization, he was found to be C. difficile positive. He was treated with antibiotics and hydration, and his white count improved. He had a bout of what appears to be asymptomatic atrial flutter during the course of the hospitalization. He reports no complaints of palpitations at the time. No history of palpitations. He is not aware of a previous history of heart disease. He presently has no abdominal complaints. He reports he is tolerating oral intake. No shortness of breath. No chest pain. PAST MEDICAL HISTORY: Significant for: 1. CLL, followed by Dr. Cortés. 2. History of lung cancer with metastases, again followed by Dr. Cortés. 3. Prostate cancer, with history of prostatectomy. 4. Reflux disease. 5. Hiatal hernia. 6. Previous small bowel obstruction. 7. COPD. 8. History of tuberculosis. 9. Chronic back pain. SOCIAL HISTORY: Smokes a half pack per day. He smoked since the age of 8. No alcohol in the last 5 to 6 years. No illicit drugs. He is . FAMILY HISTORY: Mother apparently had Alzheimer's and diabetes. REVIEW OF SYSTEMS: A 10 system review of systems is negative except for those things mentioned in HPI. PHYSICAL EXAMINATION: Vital signs: He is afebrile, heart rate 87, blood pressure 126/58. General: He is in no acute distress. HEENT: Oropharynx is moist. Poor dentition. Eye examination is pink conjunctivae, white sclerae. Neck: Examination shows no obvious thyromegaly or thyroid tenderness. Cardiovascular: He sounds to be in a regular rate and rhythm. I do not hear any obvious murmurs. He has no S3. He has no lower extremity edema. Chest: Exam sounds relatively clear. No increased work of breathing. Abdomen: Soft, nontender, nondistended. He has no obvious organomegaly. Skin: Warm and dry throughout without any rashes. Neurological: He is moving all extremities well. No lateralizing deficits. PERTINENT DATA: His chest x-ray demonstrated a stable pulmonary mass in the right upper lobe. Abdomen and pelvis CT checked on presentation shows severe diffuse colitis with enlargement of the ill-defined liver mass, trace pleural effusions with body wall edema. His electrocardiogram that was checked on 08/15/2019 at 11:21 a.m. demonstrates a right bundle branch block. Appears to be in atrial flutter with variable conduction. His subsequent EKG reviewed by me on 08/15/2019 at 18:38 shows conversion to sinus rhythm, right bundle branch block, rate of 91 beats per minute. His final EKG on 08/16/2019 at 9:35 a.m. shows sinus rhythm, right bundle branch block. His laboratory data demonstrates a white count of 20, hematocrit of 26, platelet count of 54,000. On presentation, his platelets were 207,000. They dropped all the way to a low of 38. His sodium is 129, potassium 3.9, BUN 5, creatinine 0.5. His albumin is 2.1. ASSESSMENT: Mr. Matthews is a 74-year-old gentleman with the above past medical history, who presented with colitis. He developed atrial fibrillation during the course of the hospitalization. PLAN: At this point, I would obtain an echocardiogram. He had a TSH checked earlier in the hospitalization that was low. We will recheck along with a free T4. Presently, he has a diltiazem infusion ordered, but given his blood pressures, I will place him on 25 of Toprol daily. We will follow up on the echocardiogram results. cc: Matti Lundy MD
[2019-08-17] MEDS: VANCOCIN PO SCH ×4 (01:36→21:50)
[2019-08-17] MEDS: NORCO-7.5 PO PRN ×4 (03:10→21:50)
[2019-08-17] MEDS: DUONEB (A & A) INH SCH ×4 (03:38→22:44)
[2019-08-17 06:43] LABS: AGAP 10; ALB/GLOB RATIO 1.4; ALBUMIN 2.1 g/dL (3.5-5.0); ALKALINE PHOSPHATASE 273 U/L (32-122); BUN 5 mg/dL (8-22); CALCIUM 6.9 mg/dL (8.8-10.2); CHLORIDE 91 mmol/L (98-107); COSMO 254; CREATININE 0.4 mg/dL (0.7-1.2); ESTIMATED GFR > 60; GLUCOSE 117 mg/dL (70-104); GOT 87 U/L (10-34); GPT 43 U/L (10-44); MAGNESIUM 1.6 mg/dL (1.5-2.7); PHOSPHORUS 3.2 mg/dL (2.7-4.5); POTASSIUM 3.9 mmol/L (3.5-5.1); SODIUM 127 mmol/L (136-145); TCO2 26 mmol/L (25-35); TOTAL BILIRUBIN 0.67 mg/dL (0.20-1.00); TOTAL PROTEIN 3.6 g/dL (6.3-8.3)
[2019-08-17 06:44] LABS: T4 4.74 ug/dL (4.60-12.00); TSH 0.8 uIUmL (0.27-4.20)
[2019-08-17] MEDS ORDERED: CALCIUM GLUCONATE 1 GM in NS 50 ML IV ONE (06:56)
[2019-08-17 07:15] LABS: BASO# 0.07 X1000 (0.0-0.2); BASO% 0.3 % (0.0-0.8); EOS# 0.05 X1000 (0.0-0.7); EOS% 0.2 % (0.0-10.0); HEMOGLOBIN 9.1 g/dL (14.0-18.0); IMM GRAN# 0.04 X1000 (0.0-0.04); IMM GRAN% 0.1 % (0.0-0.5); LYMPH% 85.1 % (20.5-51.1); MCH 29.4 PG (27-31); MCHC 32.5 g/dL (33-37); MCV 90.3 FL (81-99); MONO# 1.18 X1000 (0.11-0.59); MONO% 4.4 % (1.7-9.3); MPV 10.4 FL (7.4-10.4); NEUT# 2.65 X1000 (1.4-6.5); NEUT% 9.9 % (42.2-75.2); PLT 78 X1000 (130-400); RDW 17.2 % (11.5-14.5); WBC 26.69 X1000 (4.8-10.8)
[2019-08-17 08:39] LABS: BANDS 4 % (0-1); EOS 2 % (1-10); SEGS 22 % (42-75)
[2019-08-17 08:40] LABS: LYMPHS 70 % (21-51)
[2019-08-17] MEDS: PROTONIX IV SCH ×2 (08:55→21:50)
[2019-08-17] MEDS: ZYLOPRIM PO SCH ×2 (08:55→21:49)
[2019-08-17] MEDS: SODIUM CHLORIDE 0.9% INJ SCH (08:55)
[2019-08-17] MEDS ORDERED: TOPROL XL PO SCH (09:00)
[2019-08-17] MEDS ORDERED: DIFICID PO SCH (11:30)
[2019-08-17] MEDS ORDERED: CALCIUM GLUCONATE 2 GM in NS 100 ML IV ONE (12:00)
[2019-08-17] MEDS ORDERED: SAMSCA PO ONE (13:00)
--- NOTE | 2019-08-17 14:06 | ECHO REPORT ---
ORDER DATE: 08/17/2019 INDICATION: Atrial flutter. FINDINGS: 1. The right atrium appears normal in size at 3.8 cm. 2. Mild tricuspid regurgitation. RV systolic pressure of 33. 3. Normal RV size and systolic function. 4. No significant pulmonic insufficiency. 5. Mild left atrial enlargement with a volume index of 32. 6. No mitral prolapse. Mild mitral regurgitation. No mitral stenosis. 7. Normal LV size. End-diastolic dimension of 4.8 cm. Normal wall thicknesses with a posterior and interventricular septal thickness of 1 cm each. Normal LV systolic function. Estimated EF is 60% with normal wall motion. 8. The aortic valve opens well. No evidence of stenosis or insufficiency. 9. The aorta appears normal on visualized segments. 10. No pericardial effusion seen. cc: Matti Lundy MD
--- NOTE | 2019-08-17 15:15 | PROGRESS NOTE ---
DATE: 08/17/2019 SUBJECTIVE: Patient reports diarrhea is improving. Denies any fever or abdominal pain. OBJECTIVE: Vital Signs: Temperature 97.8 degrees, heart rate 92, respiratory rate 14, blood pressure 120/69, O2 saturation 99% on room air. General: This is a chronically ill-appearing, 74- year-old male, lying in bed, in no acute distress. Cardiovascular: S1, S2 heard. No murmurs, gallops, or rubs. Regular rate and rhythm. Respiratory: Coarse breath sounds noted in both pulmonary bases with some crackles. Patient is not using any accessory muscles or having work of breathing. Abdomen: Soft. Mild tenderness to palpation, diffusely, but better compared with yesterday. No signs of peritoneal irritation. Extremities: With 1+ lower extremity edema. No clubbing or cyanosis. Peripheral pulses present in both legs. Neurological: The patient is alert and oriented x3. Moves all 4 extremities. LABORATORY DATA: White cell count 26.69, hemoglobin 9.1, hematocrit 28, platelets 78,000. Sodium 127. Calcium 6.9. ASSESSMENT AND PLAN: 1. Sepsis due to Clostridium difficile colitis. Clinically, this patient is having less fever. White cell count is elevated. At this point, I prefer to increase the doses of vancomycin, although I know that this elevation in white cell count could be related to his lymphocytic leukemia. In any case, we will continue with the same management. Gastroenterology has been following this patient, but they signed off. 2. Atrial flutter with rapid ventricular response. Patient is on Cardizem drip. Cardiology has been consulted. We will follow recommendations. 3. Electrolyte imbalance. For hyponatremia, we will provide 1 more dose of Samsca. We will replenish calcium. We will check magnesium as well. 4. Pancytopenia. That condition is getting better. Hematology/Oncology following this patient. 5. Chronic lymphocytic leukemia with possible lymphadenopathy. Hematology monitoring this patient. 6. Hrg-eusya-ydyb lung cancer. Aware. We will continue to monitor. 7. Chronic obstructive pulmonary disease, not in exacerbation. We will provide breathing treatments as needed only. 8. Disposition. At this point, the patient I think is stable. We will transfer him out of [facility] today. cc: Favio Banda MD [facility]ITALJuliana
[2019-08-17] MEDS: CALTRATE 600 + D PO SCH (21:49)
--- NOTE | 2019-08-17 22:31 | CARDIOLOGY PROGRESS NOTE ---
DATE: 08/17/2019 SUBJECTIVE: Mr. Matthews has no complaints today. He has no palpitations, no chest pain. PHYSICAL EXAMINATION: Vital Signs: Afebrile. His heart rate is 95. He was in sinus mechanism at the time of my evaluation. Blood pressure 134/65. General: He is in no acute distress. Cardiovascular: He sounds to be in a regular rate and rhythm. He does not have any obvious murmurs. No S3. Extremities: Trace to minimal bilateral lower extremity edema. Warm and well perfused. Chest: Sounds relatively clear. He has no increased work of breathing. Abdomen: Soft, nontender. PERTINENT DATA: His white count is 26, which has steadily climbed from the , when it was 15. His hematocrit is 28. His platelet count is 78. This is also increased from the , when it was 38. His sodium is 127, potassium 3.9, BUN 5, creatinine 0.4. ASSESSMENT: Mr. Matthews is a 74-year-old gentleman who presented with C. difficile colitis. Had an episode of atrial flutter during the course of the hospitalization which spontaneously converted. PLAN: At this point, he is in sinus rhythm. I would continue him on the Toprol. His blood pressure looks like it will tolerate an escalation, so I will increase his Toprol from 25 to 50 daily. I would not recommend anticoagulation at this point, given the patient's issues with anemia as well as thrombocytopenia. We certainly may need Hematology to assist us with initiation of this medication in the future if needed. His echocardiogram showed a preserved ejection fraction. cc: Matti Lundy MD
[2019-08-18] MEDS: VANCOCIN PO SCH ×4 (03:21→21:58)
[2019-08-18] MEDS: DUONEB (A & A) INH SCH ×3 (04:03→21:32)
[2019-08-18 08:24] LABS: AGAP 10; ALBUMIN 2.3 g/dL (3.5-5.0); BUN 5 mg/dL (8-22); CALCIUM 7.6 mg/dL (8.8-10.2); CHLORIDE 97 mmol/L (98-107); COSMO 269; CREATININE 0.5 mg/dL (0.7-1.2); ESTIMATED GFR > 60; GLUCOSE 127 mg/dL (70-104); PHOSPHORUS 3.8 mg/dL (2.7-4.5); POTASSIUM 3.3 mmol/L (3.5-5.1); SODIUM 135 mmol/L (136-145); TCO2 28 mmol/L (25-35)
[2019-08-18] MEDS: NORCO-7.5 PO PRN ×3 (09:55→22:05)
[2019-08-18] MEDS: CALTRATE 600 + D PO SCH ×2 (09:57→21:59)
[2019-08-18] MEDS: TOPROL XL PO SCH (09:57)
[2019-08-18] MEDS: ZYLOPRIM PO SCH ×2 (09:57→21:59)
[2019-08-18] MEDS: SODIUM CHLORIDE 0.9% INJ SCH (09:59)
[2019-08-18] MEDS: PROTONIX IV SCH ×2 (09:59→21:58)
[2019-08-18 10:24] LABS: BASO# 0.04 X1000 (0.0-0.2); BASO% 0.1 % (0.0-0.8); EOS# 0.03 X1000 (0.0-0.7); EOS% 0.1 % (0.0-10.0); HEMATOCRIT 29.9 % (42.0-52.0); HEMOGLOBIN 9.5 g/dL (14.0-18.0); IMM GRAN# 0.06 X1000 (0.0-0.04); IMM GRAN% 0.2 % (0.0-0.5); LYMPH# 23.72 X1000 (1.2-3.4); LYMPH% 87.8 % (20.5-51.1); MCH 29.1 PG (27-31); MCHC 31.8 g/dL (33-37); MCV 91.7 FL (81-99); MONO# 0.65 X1000 (0.11-0.59); MONO% 2.4 % (1.7-9.3); MPV 9.9 FL (7.4-10.4); NEUT# 2.52 X1000 (1.4-6.5); NEUT% 9.4 % (42.2-75.2); PLT 82 X1000 (130-400); RBC 3.26 XMIL (4.7-6.1); RDW 17.8 % (11.5-14.5); WBC 27.02 X1000 (4.8-10.8)
[2019-08-18] MEDS ORDERED: CALCIUM GLUCONATE 2 GM in NS 100 ML IV ONE (10:56)
[2019-08-18 11:04] LABS: BANDS 4 % (0-1); LYMPHS 51 % (21-51); MONO 3 % (1-9); POIKILOCYTOSIS 1+; SEGS 40 % (42-75)
--- NOTE | 2019-08-18 15:03 | PROGRESS NOTE ---
DATE: 08/18/2019 SUBJECTIVE: The patient continues to have diarrhea this morning two times. He reports that he takes Lomotil at home. No fever or abdominal cramping reported. OBJECTIVE: Vital Signs: Temperature 98.1 degrees, heart rate 105, respiratory rate 19, blood pressure 154/66, O2 saturation 98% on room air. General: This is a chronically ill-appearing, 74- year-old, male, lying in bed in no acute distress. Cardiovascular: S1, S2 heard. No murmurs, gallops, or rubs. Respiratory: Coarse breath sounds noted in both pulmonary bases, definitely better in comparing with yesterday. The patient is not using any accessory muscles or having work of breathing. Abdomen: Soft. Nontender to palpation. Bowel sounds present. No organomegaly. No signs of peritoneal irritation. Extremities: There is 1+ pitting edema in both lower extremities. Neurological: The patient is alert and oriented x3. Moves all 4 extremities. LABORATORY DATA: White cell count 27.02, hemoglobin 9.5, hematocrit 29.9, platelets 82,000. Sodium 135, potassium 3.3, creatinine 0.5, calcium 7.6. ASSESSMENT AND PLAN: 1. Sepsis due to Clostridium difficile colitis. Clinically, this patient continues to have diarrhea. The patient reports having chronic diarrhea, and he takes Lomotil for this. He has a diagnosis of Clostridium difficile infection. His white cell count has been getting higher. He reports that that is also related to his chronic leukemia, so what I am going to do is to repeat the Clostridium difficile antigen and toxin in the stool, and if those are negative, I think he should be discharged. 2. Atrial flutter with rapid ventricular response. The patient is back in sinus rhythm. Will continue with metoprolol by mouth. Cardiology said that the patient can be discharged from their standpoint. 3. Electrolyte imbalance. Sodium is 135 today, potassium is 3.3, so will replenish potassium and calcium. 4. Pancytopenia. That condition is getting better. Hematology/Oncology following this patient. 5. Chronic lymphocytic leukemia with possible lymphadenopathy. Hematology will monitor this patient. 6. Non-small cell lung cancer. Aware. Will continue to monitor. 7. Chronic obstructive pulmonary disease, not in exacerbation. Will provide breathing treatments as needed. 8. Disposition. At this point, will continue with current treatment. Will continue with, in this case, vancomycin 250 mg by mouth every 6 hours. Will check Clostridium difficile in the stool. If that is negative, the patient can be discharged today. cc: Favio Banda MD
[2019-08-19] MEDS: DUONEB (A & A) INH SCH ×2 (03:35→10:32)
[2019-08-19] MEDS: VANCOCIN PO SCH ×3 (05:42→15:27)
[2019-08-19] MEDS: NORCO-7.5 PO PRN ×2 (05:46→13:08)
[2019-08-19] MEDS: CALTRATE 600 + D PO SCH (08:12)
[2019-08-19] MEDS: SODIUM CHLORIDE 0.9% INJ SCH (08:13)
[2019-08-19] MEDS: TOPROL XL PO SCH (08:13)
[2019-08-19] MEDS: ZYLOPRIM PO SCH (08:13)
[2019-08-19] MEDS: PROTONIX IV SCH (08:13)
[2019-08-19 08:17] LABS: BASO# 0.05 X1000 (0.0-0.2); BASO% 0.2 % (0.0-0.8); EOS# 0.02 X1000 (0.0-0.7); EOS% 0.1 % (0.0-10.0); HEMATOCRIT 29.2 % (42.0-52.0); HEMOGLOBIN 9.3 g/dL (14.0-18.0); IMM GRAN# 0.05 X1000 (0.0-0.04); IMM GRAN% 0.2 % (0.0-0.5); LYMPH% 87.9 % (20.5-51.1); MCHC 31.8 g/dL (33-37); MONO# 0.58 X1000 (0.11-0.59); MPV 10.2 FL (7.4-10.4); NEUT% 9.6 % (42.2-75.2); PLT 106 X1000 (130-400); RBC 3.21 XMIL (4.7-6.1)
[2019-08-19 08:32] LABS: AGAP 11; ALBUMIN 2.2 g/dL (3.5-5.0); BUN 6 mg/dL (8-22); CALCIUM 7.7 mg/dL (8.8-10.2); CHLORIDE 93 mmol/L (98-107); COSMO 261; CREATININE 0.4 mg/dL (0.7-1.2); ESTIMATED GFR > 60; GLUCOSE 115 mg/dL (70-104); PHOSPHORUS 4.4 mg/dL (2.7-4.5); POTASSIUM 3.5 mmol/L (3.5-5.1); SODIUM 131 mmol/L (136-145); TCO2 27 mmol/L (25-35)
[2019-08-19 09:22] LABS: BANDS 1 % (0-1); LYMPHS 63 % (21-51); MONO 2 % (1-9); SEGS 34 % (42-75)
--- NOTE | 2019-08-19 09:36 | DISCHARGE SUMMARY ---
ADMISSION DATE: 08/09/2019 DISCHARGE DATE: 08/19/2019 ADMISSION DIAGNOSES: 1. Chemotherapy-induced colitis. 2. Hyponatremia. 3. Chronic lymphocytic leukemia. 4. Lymphoma with metastasis. 5. Severe volume depletion. DISCHARGE DIAGNOSES: 1. Sepsis due to C difficile colitis. 2. Atrial flutter with rapid ventricular response. 3. Electrolyte imbalance. 4. Pancytopenia. 5. Chronic lymphocytic leukemia with possible lymphadenopathy. 6. Non-small cell lung cancer. 7. Chronic obstructive pulmonary disease, no exacerbation. 8. 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 CONSULTATIONS: 1. Dr. Cortés. 2. Dr. Gold. 3. Dr. Lundy. 4. Dr. Benjamin, Nephrology. SURGERIES AND PROCEDURES: None. HOSPITAL COURSE: Mr. Lewis Matthews is a 74-year-old male who has a history of chronic lymphocytic leukemia, lung cancer with metastasis to the lymph nodes and a lesion in his liver. His first chemo treatment was the prior to presentation. He came in with complaints of nausea, vomiting, diarrhea and dehydration. A CT of the abdomen showed severe colitis and enlargement of the liver lesion. He was started on fluids in the emergency department, Flagyl and Cipro, morphine for pain, nebulizers, and Dr. Cortés was consulted. Cultures were ordered. He had C diff obtained and tested positive on the , the day after admission. Gastroenterology was consulted who saw him on the with plan for Protonix 40 mg IV twice a day, potassium supplementation, antiemetics, continuing IV Flagyl, p.o. vancomycin and IV Zyvox. The plan was if he had worsening of his symptoms, diarrhea, nausea, vomiting, he was going to do an EGD and colonoscopy, although symptoms did improve and that was not needed. Hematology was on board due to the recent chemo and following him for his cancer. On the , Dr. Benjamin was consulted for the hyponatremia and felt like he was hypovolemic by exam and hypoalbuminemic. He was given IV albumin, continued the normal saline, but he actually went ahead and added some Lasix at that time. 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 Benjamin. He continued him on oral Lasix 20 twice a day in addition to the IV fluids at 75 mL an hour. Then he added 3 cups of water, a cup of coffee, a cup of juice, and 2 bottles of water that he had noticed at the patient's bedside, so he placed him on a fluid restriction diet and had him change his water to sports drink. On 08/16/2019, Dr. Matti Lundy was consulted for asymptomatic atrial flutter. He did have a rapid ventricular response. He wanted an echocardiogram, thyroid studies. He is on a diltiazem drip and then he added Toprol 25 daily. Echocardiogram that was performed showed an EF that was normal at 60%. No real significant results. He converted by the to sinus rhythm off the Cardizem drip and was continued on Toprol. The Toprol was increased from 25 to 50. He had a place at [facility], so he will be discharged there. DISCHARGE VITAL SIGNS: Temperature 98.6 degrees, heart rate 109, respiratory rate 19, blood pressure 129/64, O2 saturation 91% on room air. DISCHARGE LAB DATA: White blood cells 29,000, hemoglobin 9, hematocrit 29, platelet count 106,000. Sodium 131, potassium 3.5, BUN 6, creatinine 0.4, glucose 115, calcium 7.7, phosphorus 4.4, albumin 2.2. Micro: C diff positive on 08/10/2019. It was repeated on 08/18/2019 with negative C diff results that were negative. IMAGING: An 08/09/2019 chest x-ray stable, dominant, pulmonary mass in the right upper lobe. Abdominal pelvic CT: Severe diffuse colitis and enlargement of the ill-defined liver mass and body wall edema. Abdominal x-ray on the , no acute disease. Another abdominal x-ray on the , no bowel obstruction. There is possible ileus. On 08/17/2019, echocardiogram EF 60%. EKG on the 09 of August, sinus tach, rate 126. On the 15 of August, atrial flutter, rate 129. Another repeat on the 15 of August, sinus rhythm, rate 91. EKG on the 16 of August, normal sinus rhythm, rate 85. DISCHARGE MEDICATIONS: 1. Crestor 20 mg p.o. nightly. 2. Dronabinol 5 mg p.o. twice daily. 3. Calcium with vitamin D 1 tablet p.o. twice daily. 4. Aurora 7.5 one tablet p.o. q.6 hours p.r.n. 5. Toprol 50 mg p.o. daily. 6. P.o. vancomycin 125 mg every 6 hours. DISCHARGE DIET: Neutropenic diet. DISCHARGE ACTIVITY: As tolerated. FOLLOW-UP: With Dr. Cortés. DISCHARGE INSTRUCTIONS: If your condition changes, contact a physician and/or return to the emergency department. Changes may include, but are not limited to shortness of breath, increased fatigue, excessive bleeding, unexplained weight loss or gain, unmanageable pain, signs or symptoms of infection. Notify MD for any of the following signs or symptoms of active bleeding, shortness of breath, chest pain, fever greater than 101. Wash hands with soap and water. Keep all followup appointments. Take all prescribed medications as directed. Drink enough water to keep urine clear to pale yellow. Return to the emergency department immediately for any new or worsening symptoms. DISCHARGE DISPOSITION: [facility]. Dictated by RYAN Garcia for Favio Banda MD Addendum: Patient seen and examined by myself. Agree with RYAN note. It reflects my assessment and plan. Patient is being discharged in stable condition to rehab facility. Will be seen by PCP upon discharge. cc: RYAN Garcia MD [facility]
[2019-08-19 14:54] VITALS: BP 145/59
== END 2019-08-19 15:33 | DRG 872 ==
LOC: ED 14:06 → SUATTDRO 20:28 → ICU 20:28 → 2N 20:40 → 3N 08-17 19:01
PROVIDERS: ATTEND Internal Medicine

== ENCOUNTER 2019-09-28 09:33 | Inpatient (IN) ==
--- NOTE | 2019-09-28 10:40 | EKG Report ---
Test Performed on : 09/28/2019 09:49:21 AM Test Reason : CP Blood Pressure : / mmHG Vent. Rate : 109 BPM Atrial Rate : 109 BPM P-R Int : 164 ms QRS Dur : 104 ms QT Int : 344 ms P-R-T Axes : 055 021 061 degrees QTc Int : 463 ms Sinus tachycardia. Low voltage QRS Cannot rule out Anterior infarct , age undetermined Abnormal ECG When compared with ECG of 16-AUG-2019 09:35, Right bundle branch block is no longer present Minimal criteria for Anterior infarct are now present Unconfirmed Result
--- NOTE | 2019-09-28 10:49 | Diag Imaging Result Doc PS360 ---
CHEST-1 VIEW - 09/28/2019 INDICATION: AMS COMPARISON: 08/09/2019 FINDINGS: There is dense infiltrate/consolidation throughout the left lower lobe. There has been significant decrease in size of the large mass in the right upper lobe. This now measures approximately 3 cm. Heart size is normal. IMPRESSION: Mixed changes from prior. Electronically signed by Semaj Bryan 09/28/2019 10:46 AM
[2019-09-28 10:59] LABS: URINE SOURCE CATH
[2019-09-28 11:03] LABS: BILIRUBIN URINE SMALL (NEGATIVE); BLOOD URINE NEGATIVE (NEGATIVE); COLOR YELLOW; GLUCOSE URINE NEGATIVE (NEGATIVE); KETONE URINE NEGATIVE (NEGATIVE); LEUKOCYTES URINE NEGATIVE (NEGATIVE); NITRITE URINE NEGATIVE (NEGATIVE); PH URINE 5.5; PROTEIN URINE 30 mg/dL (NEGATIVE); SP GRAVITY URINE 1.021; TURBIDITY URINE HAZY (CLEAR); UR EPITHELIAL CELLS <10 /HPF (<10); URINE BACTERIA NEGATIVE /HPF; URINE RBC <10 /HPF (<10); URINE WBC <10 /HPF (<10); UROBILINOGEN URINE 4 mg/dL (NORMAL)
[2019-09-28 11:04] LABS: INR 1.39; PROTIME 17.3 Seconds (11.0-16.0); PTT 29.7 Seconds (22.3-41.8)
[2019-09-28] MEDS ORDERED: NS 500 ML IV ONE (11:15)
--- NOTE | 2019-09-28 11:27 | Diag Imaging Result Doc PS360 ---
CT HEAD W/O CONTRAST - 09/28/2019 INDICATION: METS TO BRAIN + STROKE HISTORY PRESENTS WITH COMPARISON: 05/25/2019 FINDINGS: There is a masslike area in the right cerebellar hemisphere. This apparently measures about 2.2 cm. No intracranial hemorrhage. There is worsening periventricular cerebral white matter gliosis compatible with chronic microvascular ischemia. No skull fracture. The sinuses, mastoids, and middle ears are clear. IMPRESSION: Large mass in the right cerebellar hemisphere. A brain MRI may be beneficial. This exam was performed using automated exposure control, adjustment of mA or kV according to patient size, and/or use of iterative reconstruction technique Electronically signed by Semaj Bryan 09/28/2019 11:24 AM
--- NOTE | 2019-09-28 11:31 | Diag Imaging Result Doc PS360 ---
CT THORAX W/O CONTRAST - 09/28/2019 INDICATION: HX OF LUNG CA PRESENTS WITH AMS; SAT LOW COMPARISON: 07/28/2019 FINDINGS: The esophagus is diffusely fluid-filled. Heart size is normal with a small pericardial effusion. Anemia is present. There is dense consolidation of the left lower lobe. There is also some infiltrate in the left upper lobe. There is probably a small left pleural effusion. There is been significant decrease in size of the right upper lobe mass. Demonstrates significant cavitation. This measures 1.8 x 4.1 cm. There has been decrease in size of the spiculated nodule in the anterior right lung. This now measures 13.3 x 16.4 mm. There is moderate splenomegaly. There is retroperitoneal adenopathy in the upper abdomen. There is a small nonspecific hypodensity in the liver grossly stable from prior. There are moderate degenerative changes of the spine. No acute or suspicious bony lesion. IMPRESSION: 1. Dense pneumonia in the lingula and left lower lobe. Small pleural effusion. 2. Decrease in size of the pulmonary masses. 3. Severely fluid-filled esophagus suggesting achalasia or dysmotility. This exam was performed using automated exposure control, adjustment of mA or kV according to patient size, and/or use of iterative reconstruction technique Electronically signed by Semaj Bryan 09/28/2019 11:28 AM
[2019-09-28 11:35] LABS: AGAP 23; ALBUMIN 2.5 g/dL (3.5-5.0); ALKALINE PHOSPHATASE 142 U/L (32-122); BUN 38 mg/dL (8-22); CALCIUM 8.6 mg/dL (8.8-10.2); CHLORIDE 90 mmol/L (98-107); CK PROFILE 175 U/L (24-204); COSMO 276; CREATININE 0.9 mg/dL (0.7-1.2); ESTIMATED GFR > 60; GLUCOSE 80 mg/dL (70-104); GOT 85 U/L (10-34); GPT 45 U/L (10-44); POTASSIUM 4.7 mmol/L (3.5-5.1); SODIUM 134 mmol/L (136-145); TCO2 21 mmol/L (25-35); TOTAL BILIRUBIN 2.72 mg/dL (0.20-1.00)
[2019-09-28 11:37] LABS: BASO# 0.22 X1000 (0.0-0.2); BASO% 0.2 % (0.0-0.8); EOS# 0.04 X1000 (0.0-0.7); HEMATOCRIT 28.8 % (42.0-52.0); HEMOGLOBIN 8.9 g/dL (14.0-18.0); IMM GRAN# 0.17 X1000 (0.0-0.04); IMM GRAN% 0.2 % (0.0-0.5); LYMPH# 91.92 X1000 (1.2-3.4); LYMPH% 88.3 % (20.5-51.1); MCH 30.1 PG (27-31); MCHC 30.9 g/dL (33-37); MCV 97.3 FL (81-99); MONO# 1.91 X1000 (0.11-0.59); MONO% 1.8 % (1.7-9.3); MPV 10.5 FL (7.4-10.4); NEUT# 9.88 X1000 (1.4-6.5); NEUT% 9.5 % (42.2-75.2); PLT 225 X1000 (130-400); RBC 2.96 XMIL (4.7-6.1); RDW 21.7 % (11.5-14.5); WBC 104.14 X1000 (4.8-10.8)
[2019-09-28] MEDS ORDERED: NS 1,000 ML IV ONE (11:43)
[2019-09-28 11:59] LABS: BANDS 3 % (0-1); SEGS 4 % (42-75)
[2019-09-28 12:00] LABS: ATYPICAL LYMPH 3 %; LYMPHS 90 % (21-51)
[2019-09-28 12:01] LABS: ANISOCYTOSIS 2+; HYPOCHROM 1+
[2019-09-28] MEDS ORDERED: MAXIPIME 1 GM in NS 50 ML IV ONE (12:06)
[2019-09-28] MEDS ORDERED: VANCOMYCIN 1 GM/NS 1 GM/250 ML IVPB IV ONE (12:06)
[2019-09-28] MEDS ORDERED: MORPHINE IV ONE ×2 (13:33→22:39)
--- NOTE | 2019-09-28 13:56 | PROVIDER DOCUMENTATION ---
This chart was entered by Nadya Hamm Scribe, acting as scribe for Kai Rodarte MD. HPI-General Adult - General Chief Complaint: Weakness Stated Complaint: WEAKNESS Time Seen by Provider: 09/28/19 09:48 Source: patient, family Allergies/Adverse Reactions: Patient Allergies Allergy/AdvReac Type Severity Reaction Status Date / Time atorvastatin [From Lipitor] Allergy RASH Verified 09/28/19 11:02 naproxen [From Naprosyn] Allergy RASH Verified 09/28/19 11:02 Home Medications: Home Medication List Medication Instructions Recorded Confirmed Last Taken Type Calcium Carbonate/Vit D3 [Caltrate 1 ea PO BID tab 08/19/19 09/28/19 1 Month Ago Rx 600 + D] ~08/28/19 Hydrocodone/APAP 7.5 mg/325 mg 1 tab PO Q6H PRN PRN #30 tab 08/19/19 09/28/19 09/28/19 Rx [Rociada-7.5] Dexamethasone 1 tab PO DAILY 09/28/19 09/28/19 09/15/19 History Furosemide 1 tab PO PRN PRN 09/28/19 09/28/19 1 Week Ago History ~09/21/19 - History of Present Illness -Gen Adult Nature of Presenting Problems: 74 yom presents to the eed with c/o fatigue and weakness for 5 days. pt is a current cancer pt and is ill in appearance. Location of Pain/Injury: reports: generalized Quality of Pain: reports: other (fatigue and weakness) Severity: reports: moderate Onset/Duration: reports: 5 days ago Timing: reports: still present, constant, getting worse Context/Activities at Onset: reports: light activity Modifying Factors: improves with: nothing Associated Symptoms: reports: fatigue, malaise, weakness. denies: back/neck pain, chest pain, diarrhea, fever/chills, nausea, shortness of breath, vomiting Similar Symptoms Previously?: Yes Recently seen or treated by another doctor?: Yes (oncology) Review of Systems - Adult - REVIEW OF SYSTEMS - ADULT Constitutional: reports: see soraida COOL. denies: chills, fever Eyes: reports: no symptoms reported Ears, Nose, Mouth & Throat: reports: no symptoms reported Cardiovascular: denies: chest pain, palpitations Respiratory: denies: shortness of breath, wheezing Gastrointestinal: reports: poor appetite. denies: abdominal pain, diarrhea, nausea, vomiting Genitourinary: reports: no symptoms reported Musculoskeletal: reports: see HPI, muscle weakness Integumentary: reports: no symptoms reported Neurological: reports: no symptoms reported Psychiatric: reports: no symptoms reported Endocrine: reports: no symptoms reported Hematologic/Lymphatic: reports: no symptoms reported Allergic/Immunologic: reports: no symptoms reported All Other Systems: Reviewed and Negative Past History - Adult - PAST MEDICAL HISTORY-ADULT Review of Records: reports: Old Records Reviewed, Nursing Assessment Review, Medications Reviewed, Social history reviewed & non-contributory. Major Childhood Illnesses: reports: denies history Cardiovascular: reports: HTN Respiratory: reports: denies history Gastrointestinal: reports: denies history Genitourinary: reports: denies history Musculoskeletal: reports: chronic pain Neurological: reports: denies history Endocrine/Immune: reports: immunosuppression, Leukemia Other Conditions: reports: denies history - PRIOR SURGERIES/PROCEDURES Surgical/Procedure History: reports: reviewed, not pertinent - IMMUNIZATION STATUS Childhood Immunizations: See Nurse Assessment Flu Vaccine: See Nurse Assessment - FAMILY HISTORY Family History: reviewed, not pertinent - SOCIAL HISTORY Smoking: cigarettes Provider spent 3-5 mins advising pt. on dangers of tobacco.: Discussed manners to quit use, and f/u contacts for add'l counseling. Substance Use: alcohol Alcohol Use Frequency: every day Number of drinks per typical drinking period:: 5-10 drinks Living Situation: family Physical Exam-General - PHYSICAL EXAM-ADULT Initial Vital Signs Reviewed: Yes (noted BP-88/58 O2-79%) - CONSTITUTIONAL General Appearance: alert, mild distress, cachetic, thin. negative: appears well (ill appearaing) - EYES Eyes: PERRL/EOMI - HEAD, EARS, NOSE, MOUTH & THROAT HENMT: negative: moist mucous membranes (dry oral) - NECK Neck: non-tender, full range of motion, normal inspection - RESPIRATORY Respiratory: chest non-tender, lungs clear, normal breath sounds, other (79% RA) . negative: crackles, rales, rhonchi - CARDIOVASCULAR Cardiovascular: normal peripheral pulses, tachycardia (150) - CHEST (BREASTS) Chest/Breast: deferred - GASTROINTESTINAL (ABDOMEN) Abdominal Exam: soft - GENITOURINARY Male Genitalia: deferred Rectal Exam: deferred Hemoccult Exam: deferred - MUSCULOSKELETAL Back Exam: no CVA tenderness, no vertebral tenderness Extremity: normal range of motion, normal inspection - SKIN Integumentary: normal color, normal turgor, warm/dry - NEUROLOGIC Neurologic: grossly normal - PSYCHIATRIC Psych/Mental Status: oriented x 3 Progress - PLAN OF CARE/RESULTS Progress/Plan/Lab Results: Vital Signs - 8 hr 09/28/19 09:37 09/28/19 10:11 09/28/19 10:13 Temperature 97.8 F Pulse Rate 150 H 145 H Respiratory Rate 20 Blood Pressure 88/58 107/59 O2 Sat by Pulse Oximetry 79 L 94 L 94 L Orders Category Date Time Status Cardiac Monitoring DIRECTED Care 09/28/19 10:14 Active IV Insertion ORDERED Care 09/28/19 10:14 Completed Notify MD of + Sepsis Screen NOW Care 09/28/19 10:14 Active Notify Physician As Ordered Care 09/28/19 10:14 Active [place] [place] DIRECTED Care 09/28/19 10:32 Active CHEST-1 VIEW [RAD] Stat Exams 09/28/19 10:[address] HEAD W/O CONTRAST [CT] Stat Exams 09/28/19 10:28 Ordered Chest [CT THORAX W/O CONTRAST] [CT] Stat Exams 09/28/19 10:28 Ordered BLOOD CULTURE [BLDCUL] Stat Lab 09/28/19 10:24 Results CBC WITH DIFF [HEME] Stat Lab 09/28/19 10:24 Results CK PROFILE [SP CHEM] Stat Lab 09/28/19 10:24 Received COMPREHENSIVE METABOLIC PANEL [CHEM] Stat Lab 09/28/19 10:24 Received LACTATE, PLASMA [CHEM] Q3H Lab 09/28/19 10:24 Received LACTATE, PLASMA [CHEM] Q3H Lab 09/28/19 13:15 Uncollected LACTATE, PLASMA [CHEM] Q3H Lab 09/28/19 16:15 Uncollected PROCALCITONIN [VELASQUEZ] Stat Lab 09/28/19 10:24 Received PROTIME WITH INR [COAG] Stat Lab 09/28/19 10:24 Received PTT [COAG] Stat Lab 09/28/19 10:24 Received TROPONIN T HIGH SENSITIVITY Stat Lab 09/28/19 10:24 Received URINALYSIS W/POSS RFLX CULT [URINALYSIS] Stat Lab 09/28/19 10:50 Ordered Oxygen Device Stat Oth 09/28/19 10:14 Active EKG [EKG] Stat Ther 09/28/19 10:35 Draft Result Diagrams: 09/28/19 10:24 09/28/19 10:24 - REASSESSMENT Reassessment #1 Time Reassessed: 13:41 Status: other (I HAVE SPOKE TO PATIENT AND PATIENT IS AOX3 AND STATES HE WANTS TO BE FULL CODE DESPITE KNOWING IF HE WERE TO SURVIVE, THERE WON'T BE ANY QUAILTY OF LIFE. I WILL TALK TO HOSPITALIST FOR PNA.) Reassessment #2 Time Reassessed: 13:54 Status: other (SPOKE TO HOSPITALIST; APPRECAITE THEIR ASSISTANCE.) - EKG 1 Time of EKG reading by physician:: 09:49 EKG Read and Signed by:: Tho De Paz EKG Interpretation (*Must complete 3 of following elements*): Abnormal Rate: 109 Rhythm: sinus tachycardia [place]: normal QRS: other (low volatage qrs) [place] Interval: normal ST Wave: normal Comments: cannot rule out anterior infarct, age undetermined 2 Time of EKG reading by physician:: 10:53 EKG Read and Signed by:: Tho De Paz EKG Interpretation (*Must complete 3 of following elements*): Abnormal Rate: 139 Rhythm: sinus tachycardia [place]: normal QRS: other (low vopltage qrs) [place] Interval: normal Prior EKG Comparison: changes noted Comments: st and t wave abnormality, consider inferior ischemia - XRAY 1 XRAY: Bilateral XRAY Study: Chest Impression: See EMR Report (CHEST-1 VIEW - 09/28/2019 INDICATION: AMS COMPARISON: 08/09/2019 FINDINGS: There is dense infiltrate/consolidation throughout the left lower lobe. There has been significant decrease in size of the large mass in the right upper lobe. This now measures approximately 3 cm. Heart size is normal. IMPRESSION: Mixed changes from prior. Electronically signed by Semaj Bryan 09/28/2019 10:46 AM 09/28/19 1046 Interpreting Physician: Semaj Bryan MD Dictated Date/Time: 09/28/19 1043 cc: Kai Rodarte MD; Xiang Cortés MD) - CT/MRI 1 CT Study: Head Impression: See EMR Report (CT HEAD W/O CONTRAST - 09/28/2019 INDICATION: METS TO BRAIN + STROKE HISTORY PRESENTS WITH COMPARISON: 05/25/2019 FINDINGS: There is a masslike area in the right cerebellar hemisphere. This apparently measures about 2.2 cm. No intracranial hemorrhage. There is worsening periventricular cerebral white matter gliosis compatible with chronic microvascular ischemia. No skull fracture. The sinuses, mastoids, and middle ears are clear. IMPRESSION: Large mass in the right cerebellar hemisphere. A b rain MRI may be beneficial. This exam was performed using automated exposure control, adjustment of mA or kV according to patient size, and/or use of iterative reconstruction technique Electronically signed by Smeaj Bryan 09/28/2019 11:24 AM 09/28/19 1124 Interpreting Physician: Semaj Bryan MD Dictated Date/Time: 09/28/19 1123 cc: Kai Rodarte MD; Xiang Cortés MD) 2 CT Study: Thorax Impression: See EMR Report (CT THORAX W/O CONTRAST - 09/28/2019 INDICATION: HX OF LUNG CA PRESENTS WITH AMS; SAT LOW COMPARISON: 07/28/2019 FINDINGS: The esophagus is diffusely fluid-filled. Heart size is normal with a small pericardial effusion. Anemia is present. There is dense consolidation of the left lower lobe. There is also some infiltrate in the left upper lobe. There is probably a small left pleural effusion. There is been significant decrease in size of the right upper lobe mass. Demonstrates significant cavitation. This measures 1.8 x 4.1 cm. There has been decrease in size of the spiculated nodule in the anterior right lung. This now measures 13.3 x 16.4 mm. There is moderate splenomegaly. There is retroperitoneal adenopathy in the upper abdomen. There is a small nonspecific hypodensity in the liver grossly stable from prior. There are moderate degenerative changes of the spine. No acute or suspicious bony lesion. IMPRESSION: 1. Dense pneumonia in the lingula and left lower lobe. Small pleural effusion. 2. Decrease in size of the pulmonary masses. 3. Severely fluid-filled esophagus suggesting achalasia or dysmotility. This exam was performed using automated exposure control, adjustment of mA or kV according to patient size, and/or use of iterative reconstruction technique Electronically signed by Semaj Bryan 09/28/2019 11:28 AM 09/28/19 1128 Interpreting Physician: Semaj Bryan MD Dictated Date/Time: 09/28/19 1125 cc: Kai Rodarte MD; Xiang Cortés MD) Departure - Departure Date of Disposition Decision: 09/28/19 Time of Disposition Decision: 13:55 DIAGNOSIS: Sepsis, Pneumonia, Type 2 WI (myocardial infarction) Disposition: ADMITTED INPATIENT 09 Certified Medical Emergency: Emergent Condition: Critical Referrals and Follow-Ups: [facility] [Outside] Xiang Cortés MD [Primary Care Provider] - Discharge Education: Steps to Quit Smoking, [id number] - Critical Care Note This patient required my direct & personal management of CC.: Yes Total Time (mins): 36 Critical Care Statement: This patient required my direct personal management to treat or rule out processes, the absence of which, could potentiallly result in sudden, clinically significant life or limb threatening deterioration. Attestation - Physician/ EMILY Attestation Patient care was provided by Advanced Practice Provider:: No The physician spent face to face time with patient:: Yes Advanced Practice Provider documentation review:: Supervising physician onsite and consulted in the evaluation and care of this patient. The physician did have a face to face encounter with the patient. This chart was documented by the indicated scribe, (Nadya Hamm, Filomena) and accurately reflects the services I performed and decisions made by me, Kai Rodarte MD, as attested by the provider's signature.
[2019-09-28] MEDS ORDERED: VANCOMYCIN IV PER PHARMACY MISC SCH (15:52)
[2019-09-28] MEDS ORDERED: NORCO-7.5 PO PRN (15:52)
[2019-09-28] MEDS ORDERED: TYLENOL PO PRN (15:52)
[2019-09-28] MEDS: DUONEB (A & A) INH SCH ×3 (16:49→23:03)
[2019-09-28] MEDS: NS 1,000 ML IV SCH ×2 (16:52→22:50)
[2019-09-28] MEDS: ZOSYN 3.375 GM in NS 50 ML IV SCH (17:36)
--- NOTE | 2019-09-28 17:47 | HISTORY AND PHYSICAL ---
PRIMARY CARE PHYSICIAN: RYAN Ochoa ONCOLOGIST: Dr. Cortés. CHIEF COMPLAINT: Increased fatigue and weakness over the past 5 days that progressively worsened. It is noted he is a current cancer patient. HISTORY OF PRESENTING ILLNESS: This is a 74-year-old, thin, frail, cachectic male who presents to [facility] ER with complaints of fatigue and weakness over the last 5 days. states that they did contact his oncologist who instructed them to come to the emergency room. When he arrived, he had an O2 saturation on room air of 79%. Blood pressure of 88/58 and a pulse of 150. His laboratory data showed a white blood cell count of 104.14, but of course it is noted he has a chronic lymphocytic leukemia. Plasma lactate was 5.6. Troponin T high sensitivity was 510 with a normal creatinine. A CT of the chest showed a dense pneumonia in the lingula and left lower lobe, decrease in size of pulmonary masses. We did do a CT of the head that showed a large mass in the right cerebral hemisphere. A brain MRI may be beneficial, and it appears this is a new finding since his last CT of the head done on 05/25/2019 that showed no evidence of acute intracranial disease. He also had a chest x-ray that showed mixed changes from prior. We discussed his code status with the patient and his . The patient wants to be a full code. We discussed the outcomes of the code and the possibility of a sternal rib fracture and the possibility of not making it, of course, through the code. Patient verbalized understanding, but wants to remain a full code at this time. He did receive 1.5 liters of fluids in the ER. His blood pressure has come up to 111/57. He is saturating 94% on 2 liters via nasal cannula, and so he will be admitted for further evaluation and treatment. PAST MEDICAL HISTORY: Prostate cancer, leukemia, GERD, history of TB, chronic back pain and sciatic nerve pain. PAST SURGICAL HISTORY: Prostatectomy and a bowel resection. FAMILY HISTORY: Mother has Alzheimer's and diabetes. SOCIAL HISTORY: Currently lives with family. Smokes 1/2 pack of cigarettes a day and has done so since the age of 8. Has 5 to 10 drinks of alcohol daily and denies any illicit drug use. ALLERGIES: Atorvastatin and naproxen. HOME MEDICATIONS: Calcitrate 600 + vitamin D 1 p.o. b.i.d., dexamethasone 4 mg p.o. daily, Lasix 20 mg p.o. p.r.n. will be held, and [place] 7.5 one p.o. every 6 hours p.r.n. LABORATORY DATA: Showed a white blood cell count of 104.14, hemoglobin 8.9, hematocrit 28.8, platelets 225,000. PT and INR of 17.3 and 1.39. Sodium 134, potassium 4.7, chloride 90, CO2 of 21, BUN of 38, creatinine 0.9, glucose 80, total bilirubin 2.72, AST of 85, ALT 45, alkaline phosphatase 142, creatine kinase of 175. Troponin T high sensitivity 510. Plasma lactate of 5.6. Urinalysis was negative. Chest x-ray showed mixed changes from prior. Head CT showed a large mass in the right cerebellar hemisphere. Brain MRI may be beneficial. Chest CT showed dense pneumonia in the lingula and left lower lobe with a small pleural effusion. Decrease in the size of pulmonary masses. Severely fluid-filled esophagus suggesting achalasia or dysmotility. EKG showed sinus tachycardia at 109. REVIEW OF SYSTEMS: He denied any fever, chills, blurred vision, dizziness. He had fatigue, generalized weakness. Denied any chest pain, coughing. Some shortness of breath. Denied any abdominal pain, constipation, diarrhea, burning or hurting with urination. PHYSICAL EXAMINATION: VITAL SIGNS: On arrival, he had a temperature of 97.8 degrees, pulse 150, respirations 20, blood pressure 88/58, saturating 79% on room air. Blood pressure is up to 111/57 and O2 saturation of 94% on 2 liters. GENERAL: This is a 74-year-old, thin, frail, cachectic male lying in the bed, answers questions appropriately. HEENT: Normocephalic, atraumatic. Normal ENT inspection. Oropharynx and nares are clear. Eyes: Pupils are equal, round, reactive to light and accommodation. Extraocular movements are intact. NECK: Normal inspection. Normal range of motion. LUNGS: With rales and rhonchi scattered throughout lung novak. Equal lung expansion. Chest wall movement noted. O2 via nasal cannula currently in use. HEART: Regular rate and rhythm. No murmurs, rubs, or gallops. He did have some sinus tachycardia on arrival. ABDOMEN: Soft, nontender, nondistended. Bowel sounds are present x4 quadrants. MUSCULOSKELETAL: He has 3/5 strength x4 extremities. NEUROLOGICAL: The cranial nerves 2-12 appear grossly intact. ASSESSMENT: 1. Sepsis. 2. Left lower lobe pneumonia. 3. Acute respiratory failure. 4. Chronic lymphocytic leukemia. 5. Lymphoma with metastases. 6. Hypotension, improved. 7. Tobacco abuse. 8. Ethanol abuse. PLAN: He will be admitted to the PVC unit, placed on telemetry, O2 per protocol. Regular diet. We will consult Oncology. Apply SCDs for DVT prophylaxis. Incentive spirometry. Place on Zosyn 3.375 grams IV every 6 hours, vancomycin per pharmacy protocol. Continue home medications. Normal saline at 150 mL an hour. We are going to check another CK profile and troponin T high sensitivity now. We will do a palliative care consult to discuss code status further, as it appears that the CT of the head shows a new brain metastasis that was not present back in May. Further orders after seen by attending and by brand sales consultant. Dictated by RYAN Morrell for Rhett Roy MD cc: RYAN Ochoa CRNP Patient with pneumonia, sepsis, acute hypoxic respiratory failure in the setting of malignancy with new metastases to brain, marked cancer related cachexia, severe protein calorie malnutrition and likely achalasia as well which may further complicate his ability to get nutrition. starting on aggresive IVF and antibiotics. initial blood pressure a little low but patient was assessed after initial fluids and perfusion appeared adequate at that time, blood pressure was within the normal range and capillary refill was acceptable. prognosis guarded to poor. discussed with family and they continue to want full code for now. patient was present for the discussion but largely waved at his family when questions were directed at him directly. SANDRA
[2019-09-28] MEDS ORDERED: MORPHINE IV PRN (20:39)
[2019-09-28] MEDS ORDERED: CALTRATE 600 + D PO SCH (21:00)
[2019-09-29] MEDS ORDERED: VERSED ONE (00:25)
[2019-09-29] MEDS ORDERED: NORCURON ONE (00:25)
[2019-09-29] MEDS ORDERED: AMIDATE ONE (00:26)
[2019-09-29] MEDS ORDERED: QUELICIN ONE (00:26)
[2019-09-29] MEDS ORDERED: DIPRIVAN 1% 1,000 MG/100 ML BOTTLE IV SCH (00:30)
[2019-09-29] MEDS ORDERED: DOPAMINE 400 MG/D5W 400 MG/500 ML IV.SOLN IV SCH (00:30)
[2019-09-29] MEDS ORDERED: MORPHINE IV PRN (00:30)
[2019-09-29] MEDS ORDERED: LEVOPHED 8 MG in D5 1/2 NS 250 ML IV SCH (00:30)
[2019-09-29] MEDS ORDERED: AMIDATE IV ONE (00:39)
[2019-09-29] MEDS ORDERED: QUELICIN IV ONE (00:39)
[2019-09-29] MEDS ORDERED: CARDIZEM IV ONE (00:41)
[2019-09-29] MEDS ORDERED: CARDIZEM 100 MG/NS 100 MG/100 ML IVPB IV SCH (00:45)
[2019-09-29] MEDS ORDERED: CARDIZEM ONE (00:56)
[2019-09-29] MEDS ORDERED: CARDIZEM 100 MG/NS 100 MG/100 ML IVPB ONE (00:56)
[2019-09-29] MEDS ORDERED: NORCURON IV ONE (02:14)
[2019-09-29] MEDS ORDERED: STERILE WATER INJ. ONE (02:32)
[2019-09-29] MEDS ORDERED: CORDARONE 360 MG/D5W 360 MG/200 ML IV.SOLN IV ONE (02:57)
[2019-09-29] MEDS ORDERED: CORDARONE 150 MG/D5W 150 MG/100 ML IV.SOLN IV ONE (02:57)
[2019-09-29] MEDS ORDERED: SODIUM BICARBONATE 8.4% ONE (03:00)
[2019-09-29] MEDS ORDERED: EPINEPHRINE SYRINGE ONE (03:00)
[2019-09-29] MEDS ORDERED: ATROPINE SYRINGE ONE (03:00)
--- NOTE | 2019-09-29 03:23 | EKG Report ---
Test Performed on : 09/29/2019 00:02:12 AM Test Reason : Tachycardia Blood Pressure : / mmHG Vent. Rate : 142 BPM Atrial Rate : 142 BPM P-R Int : 220 ms QRS Dur : 116 ms QT Int : 318 ms P-R-T Axes : 042 119 103 degrees QTc Int : 489 ms Critical Test Result: High HR , STEMI Sinus tachycardia. with 1st degree AV block. with occasional premature ventricular complexes. Incomplete right bundle branch block Right ventricular hypertrophy Septal infarct (cited on or before 28-SEP-2019) Possible Lateral infarct (cited on or before 28-SEP-2019) Inferior injury pattern ACUTE ME / STEMI Consider right ventricular involvement in acute inferior infarct Abnormal ECG When compared with ECG of 28-SEP-2019 09:49, (Unconfirmed) Significant changes have occurred Confirmed by Macho CASAS, Scott Greene ([id number]) on 10/03/2019 10:24:44 PM
[2019-09-29] MEDS: ZOSYN 3.375 GM in NS 50 ML IV SCH (05:53)
[2019-09-29 07:09] VITALS: BP 48/23
--- NOTE | 2019-09-29 07:18 | Diag Imaging Result Doc PS360 ---
EXAM: CHEST-PORTABLE INDICATION: Hypoxia TECHNIQUE: One view COMPARISON: 09/28/2019 FINDINGS: Dense airspace consolidation in the left lower lung zone is unchanged. No new consolidation is identified. Cardiac silhouette is stable. IMPRESSION: Essentially stable chest. Electronically signed by Hung Redding 09/29/2019 7:15 AM
--- NOTE | 2019-09-29 07:37 | Diag Imaging Result Doc PS360 ---
EXAM: CHEST-1 VIEW INDICATION: respiratory failure TECHNIQUE: One view COMPARISON: 09/28/2019 FINDINGS: There has been interval placement of an ET tube. The tip projects over the trachea and above the sanya at about the T5 level. There has been interval placement of an NG tube. The tip projects well below the diaphragm and is assumed to be in the lumen of the stomach in expected position. Electrode pads now project over the left lower lung zone. Left lower lung zone consolidation is unchanged. IMPRESSION: Interval intubation and placement of NG tube as described. Stable chest, otherwise. Electronically signed by Hung Redding 09/29/2019 7:35 AM
[2019-09-29] MEDS ORDERED: CORDARONE 540 MG in D5W 289.2 ML IV ONE (08:58)
[2019-09-29] MEDS ORDERED: DECADRON PO SCH (09:00)
--- NOTE | 2019-09-29 10:19 | PROVIDER PROGRESS NOTE ---
Progress Note Pulmonary: Respiratory failure. Metastatic Ca. Shock. Pneumonia. Sepsis. DNRI. later
[2019-09-29] MEDS ORDERED: VANCOMYCIN 1 GM/NS 1 GM/250 ML IVPB IV SCH (13:00)
--- NOTE | 2019-09-30 21:06 | PROGRESS NOTE ---
DATE: 09/28/2019 This is a late entry critical care progress note. At approximately 2345 on September 28, 2019. The patient's nurse did notify me the patient was having increased respiratory difficulty, and oxygen saturations had been declining. They have had to increase his oxygen. He is currently on a Ventimask at this time. His heart rate was elevated in the 140 to 150s. Given this, I did order stat EKG, arterial blood gas and chest x-ray. The patient's condition did begin to decline further. A critical care assistance team call was called. Upon arriving to the room, the patient was breathing but did have shallow respirations. His heart rate, which was 150 initially was declining into the 70s and 80s. I did go ahead and confirm that the patient was a full code. We did go ahead and begin to provide respirations for the patient per bag valve mask. Once we started doing this, his heart rate did maintain in the 80s. His oxygen saturation did improve into the high 80s and 90s. I did notify the hospitalist physician, Dr. Bobo, that the patient did need to be intubated. Dr. Bobo and Dr. Cabello, ER physician, did come to the patient's bedside. The patient was intubated by Dr. Cabello, the ER physician. After intubation even with administration of propofol, the patient's heart rate did continue to elevate up into the 150s. At the same time, the patient was also getting an OG tube placed. We allow the patient a few minutes after the OG tube was placed just in case it was because this was uncomfortable for him and this is what caused his increased heart rate, though he remained tachycardic. His blood pressure did slightly decline. Dr. Bobo did want the patient started on a Cardizem drip, though given that his blood pressure was slightly declining, we did go ahead and place a pressor of Levophed for blood pressure support. He was transferred to the ICU. I did call and speak with his as well as his son on the phone and did update both of them of the patient's condition. After being transferred to the ICU and being placed on the ventilator, the patient was having some issues with becoming hypoxic while on the ventilator. They did unhook the patient from the ventilator and tried bagging him manually, though he was still having some oxygen desaturation as well. They did page Dr. Cherry, and Dr. Cherry did give them orders for vecuronium and new vent settings. During this time, he also did have some problems with decreasing heart rate into the 50s. His Cardizem drip was stopped at this time. At 0251 on September 29, 2019, they did call a code blue. It was noted that the patient's O2 saturation did drop to 82% on 100% FiO2 per the ventilator. His heart rate was elevated again at that time up to 166. Though, then the patient suddenly became bradycardic, then asystole. They did call a code blue. They started CPR immediately. ACLS protocol was initiated. Myself, Dr. Cabello, the ER physician, and Dr. Bobo did respond to the code. Emergency ACLS medications of epinephrine, atropine, sodium bicarbonate, and amiodarone were given. The patient did have return of spontaneous circulation at 0300 with a heart rate of 150 that was sinus tach on monitor, blood pressure 163/96, respirations 20, SpO2 was 100%. An amiodarone drip was started. Dr. Bobo at this time did speak with the patient's family. They did express at this time that they would like the patient to be a code status of do not resuscitate. They did want us to continue all measures and interventions that we currently are performing, though if he was to code again, they do not want us to perform compressions, cardiac defibrillation, or give any further emergency cardiac medications. Dictated by RYAN Patiño for Kody Bobo MD cc: Kody Bobo MD [facility]
--- NOTE | 2019-10-01 07:26 | DISCHARGE SUMMARY ---
ADMISSION DATE: 09/28/2019 DISCHARGE DATE: 09/29/2019 Discharged as . DISCHARGE DIAGNOSES: 1. Septic shock. 2. Pneumonia. 3. Achalasia. 4. Leukemia. 5. Lymphoma. 6. Severe protein calorie malnutrition. 7. Cancer related cachexia. 8. Anemia of chronic disease. 9. Acute hypoxic respiratory failure. 10. Demand ischemia/type 2 myocardial infarction. HOSPITAL COURSE: Patient with history of many years of leukemia and lymphoma being treated by Dr. Cortés as an outpatient. He has had progressive weight loss. He came in with confusion and dyspnea. He was found to have pneumonia and hypotension. He initially responded well to fluid resuscitation, but later on the night after admission had respiratory distress and intubated. Even on the ventilator, he desaturated and ended up having to be bagged. Subsequently, after discussion with pulmonology, patient was paralyzed and improved briefly but then desatted again. After that, he became bradycardic and lost pulse. CPR was started. He was given 1 of atropine, 3 of epinephrine and 1 bicarb after which they did get a pulse back. After the first code, code status was discussed with family and they elected to make him a DNR after that. A few hours later, patient again lost pulse and was not resuscitated. Time of was 06:20. DISCHARGE EXAM: Pulses absent. Heart and breath sounds absent. Pupils are fixed and dilated. TIME OF : 6:20. DISCHARGE MEDICATIONS: None. Patient . FOLLOWUP: None. Patient . DISCHARGE DIET: None. Patient .
== END 2019-09-29 06:20 | disposition expired | DRG 871 ==
LOC: ED 09:33 → 2N 14:54 → ICU 09-29 02:03
PROVIDERS: ATTEND Internal Medicine